=== PATIENT | male | born 1955 | race Caucasian/White ===

== ENCOUNTER 2024-05-25 08:46 | Outpatient (AMB) | payer MEDICARE, SELFPAY ==
[2024-05-25 08:56] VITALS: BMI 37.9
--- NOTE | 2024-05-25 08:56 | A.OFFVIS_ITS ---
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 Accompanied by: Spouse Allergies No Known Allergies Allergy (Verified 05/25/24 09:09) HPI Comments Details: Very pleasant 68-year-old gentleman presents for evaluation of abdominal aortic aneurysm this all began as a screening from insurance for Medicare aneurysm screening. June of 2022 it had measured 4.8 cm. More recently had been shown to increase on ultrasound and a subsequent CT scan was obtained. He had to change vascular services due to insurance issues. He was subsequently sent in for vascular evaluation by us. Upon discussion with him he is asymptomatic. He has prior history of smoking and quit smoking in 2017. He is a nondiabetic. He is being maintained on an aspirin and statin. Upon further discussion with him he reports that he is fairly healthy and can climb 2 flights of stairs with no significant difficulty. [facility] Medical History (Updated 05/25/24 @ 13:10 by Reinaldo Tinajero MD) Carpal tunnel syndrome of right wrist Surgical History (Updated 05/25/24 @ 09:10 by NAKIA Stratton) S/P skin biopsy Social History (Updated 05/25/24 @ 09:10 by NAKIA Stratton) Patient Tobacco Use Status: Former Tobacco user Tobacco use type: Cigarette Review of Systems Const All systems reviewed & are unremarkable except as noted in HPI and below Reports no additional complaints ENT Reports Normal hearing present Card Denies chest pain, Denies chest pain at rest, Denies chest pain with activity and Denies pedal edema Resp Denies cough GI Denies abdominal pain Musc Denies abnormal gait, Denies muscle cramps and Denies radiating pain into limb Skin/Breast Denies skin ulcer and Denies wounds Neuro Reports Normal hearing present and Denies abnormal gait Psych Reports no additional complaints Physical Exam Vital Signs: BMI result Body Mass Index 37.9 Const General: cooperative, healthy appearing and comfortable Orientation/consciousness: oriented to person, oriented to place and oriented to time HEENT Head: Yes normal to inspection Neck Neck: Yes normal visual inspection Carotids: no bruits Chest Chest palpation & inspection: normal inspection of the chest Resp Effort & Inspection: normal respiratory effort and able to speak in complete sentences Auscultation: clear to auscultation bilaterally, no crackles, no rales, no rhonchi and no wheezes Cardio Other: Palpable bilateral DP pulses Rate: regular rate Rhythm: regular rhythm Heart sounds: S1 normal heart sound present and S2 normal heart sound present Bruits: no carotid bruits Peripheral pulses: Peripheral pulses 2+ throughout GI Inspection: Yes normal to inspection Skin Wounds: no wounds Hair: normal Neuro General: oriented to person, oriented to place and oriented to time Cranial nerves: Yes CN's II-XII intact bilaterally and Yes Normal hearing present Cognition (Neuro): normal cognition Motor exam (neuro): 5/5 motor strength present throughout Extrem Other: venous exam: No significant superficial varicosities or spider telangiectasias, minimal edema General: No clubbing, No cyanosis and No edema Psych Appearance: grossly normal Mental Status: mental status grossly normal Speech and movement: Normal speech and movement present Results Reviewed Results Reviewed: CT scan report dated 05/10/2024 demonstrates infrarenal aortic aneurysm measuring 5.7 x 4.7. With a question of a pseudo aneurysm. Written report reviewed only. Assessment & Plan Assessment & Plan (1) AAA (abdominal aortic aneurysm) without rupture: Code(s): I71.40 - Abdominal aortic aneurysm, without rupture, unspecified Category: Medical Qualifiers: Abdominal aorta location: infrarenal aorta Qualified Code(s): I71.43 - Infrarenal abdominal aortic aneurysm, without rupture Plan: In short patient has a 5.7 cm infrarenal aortic aneurysm. We have discussed the pathophysiology of aortic aneurysms and the risk of ruptures. We have discussed rupture risk based on size. Due to the aneurysms overall size repair is indicated. The patient will require endovascular aortic aneurysm repair with possible open repair. Risks benefits complications including but not limited to bleeding infection rupture and were discussed in detail with the patient. He agreed and would like to move forward. He will require cardiac risk stratification prior to surgery. Thank you for allowing us to assist in his care. If there are any questions or concerns please do not hesitate to contact us Please note a longitudinal relationship has been created with the patient and we have been following and surveillance this chronic condition. Coding Level of Care Code New Pt Level 4 (98585) Complex EM visit Add On G2211 Diagnoses Infrarenal abdominal aortic aneurysm (AAA) without rupture I71.43 Abdominal aorta location: infrarenal aorta Abd Aortic Aneurysm History of Present Illness Current symptoms: Denies abdominal pain
== END 2024-05-25 09:42 | disposition home or self-care (01) ==
PROVIDERS: PCP Family Medicine; Visit Provider Surgery Vascular Surgery
DX: I71.43 Infrarenal abdominal aortic aneurysm, without rupture (principal)
CPT/HCPCS: 99204; G2211

== ENCOUNTER → 2024-05-25 08:46 | Outpatient (BNVA) | payer MEDICARE, SELFPAY | PROVIDERS: PCP Family Medicine; Visit Provider Surgery Vascular Surgery | DX: I71.43 Infrarenal abdominal aortic aneurysm, without rupture (principal); Z87.891 Personal history of nicotine dependence | CPT/HCPCS: 99202 ==

== ENCOUNTER 2024-05-26 12:42 | Outpatient (AMB) | payer MEDICARE, SELFPAY ==
--- NOTE | 2024-05-26 12:56 | A.OFFVIS_ITS ---
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 Patient denies any history of cardiovascular issues including coronary disease, myocardial infarction or cardiomyopathy. History of smoking in the past but not recently. Otherwise, he states that he was also diagnosed with branch retinal artery occlusion couple years ago. Within limits of her activity, denies any chest pain or shortness of breath. In the past, he has also had high blood pressures as much as the 170s. Not on any medications at this time. He thinks home blood pressures are much lower. [facility] Medical History (Updated 05/26/24 @ 13:25 by Girish Lyn MD) Essential hypertension Carpal tunnel syndrome of right wrist Surgical History S/P skin biopsy Family History (Updated 05/26/24 @ 13:01 by Yudelka Gerber CMA) Father Stented coronary artery Brother DM2 (diabetes mellitus, type 2) Social History (Updated 05/26/24 @ 13:02 by Yudelka Gerber CMA) Alcohol intake: current Comment: social Patient Tobacco Use Status: Former Tobacco user Tobacco use type: Cigarette Review of Systems Const Denies chills, Denies daytime sleepiness, Denies fatigue, Denies fever(s), Denies poor appetite, Denies snoring, Denies stops breathing during sleep, Denies weakness, Denies weight gain and Denies weight loss Eyes Denies loss of vision ENT Denies dizziness and Denies hearing loss Card Denies chest pain, Denies irregular heart rhythm, Denies claudication, Denies leg edema, Denies lightheadedness, Denies palpitations, Denies dyspnea on exertion and Denies orthopnea Resp Denies cough, Denies excessive phlegm production, Denies dyspnea on exertion, Denies snoring and Denies wheezing GI Denies abdominal pain, Denies hematochezia, Denies change in bowel habits, Denies nausea and Denies vomiting Denies dysuria and Denies urinary frequency Musc Denies arthralgias, Denies muscle weakness, Denies numbness and Denies other Skin/Breast Denies nail changes and Denies rash Neuro Denies Abnormal speech present, Denies dizziness, Denies loss of vision, Denies memory loss, Denies numbness and Denies weakness Psych Denies depression and Denies memory loss Endo Denies fatigue and Denies palpitations Praveen/Lymph Denies easy bruising Aller/Immun Denies wheezing Physical Exam Vital Signs: Last Vital Signs Pulse 66 05/26/24 12:59 BP 142/88 H 05/26/24 12:59 BMI result Body Mass Index 38.2 Const General: comfortable and no acute distress Orientation/consciousness: patient oriented x3 HEENT Other: Unremarkable Head: Yes normal to inspection Neck Neck: Yes normal visual inspection Chest Chest palpation & inspection: normal inspection of the chest Resp Auscultation: clear to auscultation bilaterally Cardio Palpation: normal PMI Heart sounds: S1 normal heart sound present, S2 normal heart sound present, no gallops, no murmurs and no rubs GI Palpation (GI): Soft to palpation Back/Spine/Pelvis Other: unremarkable Skin General skin exam: no rashes or lesions noted Neuro General: patient oriented x3 Speech: No Abnormal speech present Extrem General: Yes normal to inspection Psych Mental Status: mental status grossly normal Office Procedures EKG Details: EKG with underlying sinus rhythm at 66/Min; no significant ST-T changes and otherwise unremarkable. [place] [id number], Complete Assessment & Plan Assessment & Plan (1) Preoperative cardiovascular examination: Code(s): Z01.810 - Encounter for preprocedural cardiovascular examination Category: Medical (2) AAA (abdominal aortic aneurysm) without rupture: Code(s): I71.40 - Abdominal aortic aneurysm, without rupture, unspecified Category: Medical Qualifiers: Abdominal aorta location: infrarenal aorta Qualified Code(s): I71.43 - Infrarenal abdominal aortic aneurysm, without rupture (3) Essential hypertension: Code(s): I10 - Essential (primary) hypertension Category: Medical Plan Considering major vascular surgery, will plan on echocardiogram and stress testing for further evaluation. With regard to medications, he is already on aspirin and statins. Blood pressure is on the higher side today but he states home pressures are lower than this. However, he reports blood pressures as much as 170s in the past. Hence considering history of aortic aneurysm, start medications. Amlodipine 2.5 mg daily. He agrees. Addendum can be made after review of the testing. Orders: Orders CA echo transthoracic complete Today I71.43 - Infrarenal abdominal aortic aneurysm, without rupture, Z01.810 - Encounter for preprocedural cardiovascular examination NM cardiolite stress test Today R07.2 - Precordial pain, Z01.810 - Encounter for preprocedural cardiovascular examination CA lexiscan stress w anika Today Z01.810 - Encounter for preprocedural cardiovascular examination Medications: New amlodipine 2.5 mg PO DAILY 90 tabs 3RF I10 - Essential (primary) hypertension Coding Level of Care Code New Pt Level 4 (17085) Diagnoses Preoperative cardiovascular examination Z01.810 Infrarenal abdominal aortic aneurysm (AAA) without rupture I71.43 Abdominal aorta location: infrarenal aorta Essential hypertension I10 CPT Codes EKG - CPT: 42465-[id number], Complete ([id number])
[2024-05-26 12:59] VITALS: BP 142/88; PULSE 66; BMI 38.2
== END 2024-05-26 13:44 | disposition home or self-care (01) ==
PROVIDERS: PCP Family Medicine; Visit Provider Internal Medicine
DX: I71.43 Infrarenal abdominal aortic aneurysm, without rupture (principal); I10 Essential (primary) hypertension; Z01.810 Encounter for preprocedural cardiovascular examination
CPT/HCPCS: 93010; 99204

== ENCOUNTER → 2024-05-26 12:42 | Outpatient (BNVA) | payer MEDICARE, SELFPAY | PROVIDERS: PCP Family Medicine; Visit Provider Internal Medicine | DX: Z01.810 Encounter for preprocedural cardiovascular examination (principal); I71.43 Infrarenal abdominal aortic aneurysm, without rupture; I10 Essential (primary) hypertension | CPT/HCPCS: 93005; 99202 ==

== ENCOUNTER → 2024-05-28 10:48 | Outpatient (REF) | payer MEDICARE, SELFPAY ==
--- NOTE | 2024-05-28 10:51 | CA_ITS ---
Transthoracic Echocardiogram Patient (Last, First, Middle): Moustapha Ponce, Gender: Male Date of : 1955 Age: 68 Procedure Date: 05/28/2024 Procedure Type: Transthoracic Echocardiogram Location: OP Height: 172. cm Weight: 113.4 kg BSA: 2.24 m2 Heart Rate: bpm BP: 155 / 85 mmHg Pesticide Use Medical Coordinator: GEMA Referring MD: Girish Lyn MD Symptoms: Z01.810 - Encounter for preprocedural cardiovascular examination Study Quality: Fair ECG Rhythm: Bradycardia Conclusions: - The left ventricular systolic function is normal. The calculated ejection fraction is 62% by biplane method. - Possible basal inferior/inferoseptal/inferolateral hypokinesis. - No obvious valvular pathology seen on this study. Findings Left Ventricle Normal left ventricular cavity size. The left ventricular systolic function is normal. The calculated ejection fraction is 62% by biplane method. Diastolic function is normal for age. There is mild septal asymmetric hypertrophy. Possible basal inferior/inferoseptal/inferolateral hypokinesis. LV peak GLS -15.9%. Right Ventricle Mildly increased right ventricular cavity size. There is normal right ventricular systolic function. Atria Both atria are normal in size. Aortic Valve There is a normal trileaflet aortic valve. There is mild calcification of the aortic valve. There is no aortic valve stenosis. There is no aortic valve regurgitation. Mitral Valve The mitral valve appears normal. There is no mitral valve regurgitation. There is no mitral valve stenosis. Pulmonic Valve The pulmonic valve is likely normal. Tricuspid Valve Normal tricuspid valve structure. There is no tricuspid valve regurgitation. Tricuspid regurgitation envelope is inadequate for calculation of right ventricular systolic pressure. Great Vessels The asc aorta and aortic arch are normal in size. Venous The inferior vena cava is normal in size and collapses greater than 50% with inspiration. Pericardium/Pleural There is no evidence of pericardial effusion. Prior Study Comparison No prior study available for comparison. Recommendations, Care & Conclusions No obvious valvular pathology seen on this study. Measurements 2D Linear Measurements IVSd: 1.28 0.6-0.9/0.6-1.0 cm LVIDd: 4.87 3.9-5.3/4.2-5.9 cm LVIDd Index: 2.17 2.4-3.2/2.2-3.1 cm/m2 LVIDs: 2.87 2.0-3.6 cm LVPWd: 0.93 0.7-1.1 cm LA Diam: 4.50 2.7-3.8/3.0-4.0 cm LAIDs Index: 2.01 1.5-2.3 cm/m2 LV Mass: 249.13 67-162/88-224 g LV Mass Index: 111.22 43-95/49-115 g/m2 LVOT Diam: 2.30 3.0+(-)1.3 cm 2D Systolic Function EF 4C: 61.30 >55% EF 2C: 65.20 >55% EF BiP: 62.00 >55% Mitral Valve MV Pk E: 0.80 MV PK A: 0.56 MV Decel Time: 169.00 E/A: 1.40 E'Lateral: 9.36 E'Medial: 7.40 E/E' Med: 10.80 E/E' Lat: 8.50 PHT: 50.00 MVA PHT: 4.40 Decel [place]: 4.71 Aortic Valve AoV Pk [place]: 1.05 AoV Mn [place]: 0.79 AoV VTI: 0.26 AoV Pk Grad: 4.00 Aov Mn Grad: 3.00 YAS Cont.VTI: 2.53 LVOT LVOT Pk [place]: 0.67 LVOT Mn [place]: 0.48 LVOT VTI: 0.16 LVOT Pk Grad: 2.00 LVOT Mn Grad: 1.00 LVOT Diam: 2.30 LVOT Area: 4.15 Diastolic Function MV Pk E: 0.80 MV Pk A: 0.56 E/A: 1.40 E'Medial: 7.40 E/E' Med: 10.80 E' Laterial: 9.36 E/E' Lat: 8.50 Right Ventricle TAPSE (mm): 23.30 Tricuspid Valve RA Press: 3.00 Great Vessels Aorta Sinus of Valsalva: 3.70 2.0-3.5 cm Ao Asc: 3.90 2.1-3.4 cm Ao Arch: 2.90 Pulmonary Valve PV Pk [place]: 1.38 Peak PV Grad: 8.00 Updated in Other Vendor System with Status of Final Girish Lyn MD electronically signed on 05/30/2024 11:10:36 AM with status of Final
== END ==
LOC: HO.CARD 10:48
PROVIDERS: PCP Family Medicine; Visit Provider Internal Medicine
DX: Z01.810 Encounter for preprocedural cardiovascular examination (principal); I71.43 Infrarenal abdominal aortic aneurysm, without rupture
CPT/HCPCS: 93306; 93356; 99202

== ENCOUNTER → 2024-05-28 10:51 | Outpatient (BNV) | payer MEDICARE, SELFPAY | PROVIDERS: PCP Family Medicine; Visit Provider Internal Medicine | DX: I42.2 Other hypertrophic cardiomyopathy (principal); I35.8 Other nonrheumatic aortic valve disorders | CPT/HCPCS: 93306; 93356 ==

== ENCOUNTER → 2024-06-02 07:48 | Outpatient (REF) | payer MEDICARE, SELFPAY ==
--- NOTE | ~2024-06-02 | NM_ITS ---
Lexiscan Myocardial perfusion study Indication: Preoperative cardiovascular evaluation Technique: The patient was brought in for a Lexiscan perfusion study on 06/02/2024 and was injected 0.4 mg of Lexiscan intravenously. Within a minute of this injection 40 mCi of sestamibi was given intravenously. Images were obtained using the SPECT gamma camera interlaced with the gating device. Images were obtained in supine position. Resting perfusion study was performed on 06/03/2024. Patient was administered 40 mCi of sestamibi intravenously at rest. Images were then obtained in supine position. Total DLP 117 mGy-cm. Images were processed with the software and compared side to side in short axis, horizontal long axis and vertical long axis views. Findings: Raw aquisition reviewed. The stress perfusion study showed diminished tracer uptake in the basal part of inferior wall. There is improvement with CT attenuation correction suggestive of diaphragmatic attenuation artifact. The gated study shows normal LV systolic function with calculated LVEF of 58%. LV cavity is normal in size. The gated study shows normal wall thickening and contraction of segments. Resting study shows decreased tracer uptake in the basal part of inferior wall. There is improvement with CT attenuation correction suggestive of diaphragmatic attenuation artifact. Gating at rest reveals normal wall motion with ejection fraction at 59%. The findings are consistent with fixed basal inferior defect, suspected to be from diaphragmatic attenuation artifact. No clear reversible defects. [place] cardiolite stress test Impression: 1. Myocardial perfusion imaging study shows probably normal myocardial perfusion.. 2. Gated LVEF is 58% during stress and 59% during rest. 3. Transient ischemic dilatation not present. EKG component of the test reported separately. Electronically signed by: Girish Lyn MD 06/03/2024 04:26 PM EDT
--- NOTE | 2024-06-02 07:56 | CA_ITS ---
Acquisition Time: 2024-06-02 07:57:46 Total Exercise Time: 00:02:00 Test Indications: Pre-Op Evaluation Medications: ASA ATORVASTATIN TAMSULOSIN NAPROXEN Protocol: LEXISCAN Max HR: 105 BPM 69% of Pred: 151 BPM Max BP: 144/080 mmHG Max Work Load: 1.0 METS Pharmacological stress test with Lexiscan injection while sitting and marching in place, without anginal symptoms, without arrhythmias, with normotensive response to injection, with nondiagnoisitic EKGs. Nuclear images pending. Test reviewed with Dr. Galaviz. Referred By: Girish Lyn Overread By: Maryuri Brewster
== END ==
LOC: HO.CARD 07:48
PROVIDERS: Visit Provider Internal Medicine
DX: Z01.810 Encounter for preprocedural cardiovascular examination (principal); R07.2 Precordial pain
CPT/HCPCS: 78452; 93017; A9500; J0280; J2785

== ENCOUNTER → 2024-06-02 07:56 | Outpatient (BNV) | payer MEDICARE, SELFPAY | PROVIDERS: Visit Provider Nurse Practitioner | DX: Z01.810 Encounter for preprocedural cardiovascular examination (principal) | CPT/HCPCS: 78452; 93016; 93018 ==

== ENCOUNTER 2024-06-21 06:08 | Inpatient (IN) | payer MEDICARE, SELFPAY ==
[2024-06-15 12:27] VITALS: BP 169/91; PULSE 68; RESP 20; O2SAT 98; BMI 38.0
[2024-06-15 13:28] LABS: Hematocrit 48.3 % (42.0-52.0); INTERNATIONAL NORM RATIO 0.9 (0.9-1.1); Mean Corpuscular HGB Conc 33.1 g/dl (31.0-36.0); Mean Corpuscular Hemoglobin 30.6 pg (27.0-33.0); Mean Corpuscular Volume 92.4 fL (80.0-98.0); Mean Platelet Volume 10.6 fL (9.4-12.4); Platelet Count 119 X10*3/uL (160-400); Prothrombin Time 10.8 SEC (10.9-12.4); Red Blood Count 5.23 X10*6/uL (4.60-5.80); Red Cell Distribution Width 12.6 % (11.0-16.0); White Blood Count 5.6 X10*3/uL (4.8-10.8)
[2024-06-15 13:31] LABS: Partial Thromboplastin Time 32.5 SEC (26.0-36.8)
[2024-06-15 13:33] LABS: Anion Gap 8 (12-20); Blood Urea Nitrogen 18 mg/dL (9-16); Calcium 9.2 mg/dL (8.4-10.2); Carbon Dioxide 30 mmol/L (22-29); Chloride 109 mmol/L (96-108); Creatinine Clr Calc Pharmacy 93.6; Estimated Glomerular Filt Rate > 60; Glucose Random 96 mg/dL (60-115); Potassium 4.4 mmol/L (3.3-5.1); Sodium 143 mmol/L (135-145)
[2024-06-21] VITALS (21 sets, daily range): BP systolic 115–158; BP diastolic 49–79; PULSE 60–100; RESP 11–29; TEMP 36.4–37; O2SAT 94–100; BMI 37.9
--- NOTE | ~2024-06-21 | FL_ITS ---
EXAMINATION: INTRAOPERATIVE FLUOROSCOPY ABDOMINAL AORTA CLINICAL INFORMATION: Aortic stent graft. COMPARISON: CT abdomen/pelvis 05/10/2024 TECHNIQUE: Intraoperative fluoroscopic imaging was provided to Dr. Tinajero during aortic stent graft placement. Total radiographic images: One spot film and one angiographic run. Exposure time: 14 minutes, 54.2 seconds Dose area product: 122.90 Gy-cm2 FINDINGS/ FL/FL guidance in OR IMPRESSION: intraoperative fluoroscopic images demonstrate stages of aortic stent graft placement. Please see Dr. Reinaldo Tinajero's operative note for full details. Electronically signed by: Ryan Saravia MD 06/21/2024 06:51 PM EDT
--- OUTSIDE RECORDS SUMMARY | 2024-06-21 06:12 | XMS_ITS | Continuity of Care Document ---
Author Organization [facility] Address [address] [address]- Care Team Providers Care Surgery Tech Name Role Phone Doris Simms MD Primary Care Phys ician [place] [facility] [place] [id number] Date(s): 02/10/23 - 03/12/23 [facility] [address] [address]- Attending Physician: Alison Tran Admitting Physician: AdmAlison cardona Referring Physician: AdmtrAlison Allergies, Adverse Reactions, Alerts No Known Medication Allergies Medications aspirin 81 mg oral delayed release tablet 81 mg, 1, tablet, By Mouth, Daily, # 90 tablet, Refills 3, Tot. Refills 3, Maintenance, 08/19/22 14:12:00 EST, Route to Pharmacy Electronically, [facility]/pharmacy #[id number], Partial fill upon patient request if the prescription is for a schedule II opioid drug. Start Date: 08/19/22 Stop Date: 08/14/23 Status: Ordered atorvastatin 20 mg oral tablet 1 tablet = 20 mg, By Mouth, Daily, # 90 tablet, 3 Refills, Maintenance, 08/19/22 14:12:00 EST, Tablet, [facility]/pharmacy #5, Partial fill upon patient request if the prescription is for a schedule II opioid drug. Start Date: 08/19/22 Stop Date: 08/14/23 Status: Ordered Naproxen By Mouth, 0 Refills, Maintenance, 08/19/22 13:50:00 EST, Partial fill upon patient request if the prescription is for a schedule II opioid drug. Start Date: 08/19/22 Status: Ordered Patient Care team information Care Team Personnel Name: Doris Simms MD Position: S Outreach Member Role: PCP Address: Address: [address] [place] [phone]
--- OUTSIDE RECORDS SUMMARY | 2024-06-21 06:12 | XMS_ITS | Continuity of Care Document ---
Author Organization [facility] Address [address] [address]- Care Team Providers Care Glove Tagger Name Role Phone Doris Simms MD Primary Care Phys [facility] Encounter [facility] [place] [id number] Date(s): 12/26/22 - 03/12/[address] [address]- Attending Physician: Taylor Carlin MD Admitting Physician: Taylor Carlin MD Referring Physician: Doris Simms MD Allergies, Adverse Reactions, Alerts No Known Medication Allergies Medications aspirin 81 mg oral delayed release tablet 81 mg, 1, tablet, By Mouth, Daily, # 90 tablet, Refills 3, Tot. Refills 3, Maintenance, 08/19/22 14:12:00 EST, Route to Pharmacy Electronically, [facility]/pharmacy #[id number], Partial fill upon patient request if the prescription is for a schedule II opioid drug. Start Date: 08/19/22 Stop Date: 08/14/23 Status: Ordered atorvastatin 20 mg oral tablet 1 tablet = 20 mg, By Mouth, Daily, # 90 tablet, 3 Refills, Maintenance, 08/19/22 14:12:00 EST, Tablet, [facility]/pharmacy #[id number], Partial fill upon patient request if [...] S Outreach Member Role: PCP Address: Address: [address] [place] [address]- [place]
--- OUTSIDE RECORDS SUMMARY | 2024-06-21 06:12 | XMS_ITS | Continuity of Care Document ---
Author Organization [facility] Address [address] [address]- Care Team Providers Care Foundation Engineer Name Role Phone Linden Orantes MD, Doris Primary Care Phys [facility] Encounter [facility] Date(s): 08/19/22 - 08/26/22 [facility] [address] [address]- Attending Physician: Taylor Carlin MD Admitting Physician: Taylor Carlin MD Referring Physician: Linden Orantes MD , Doris Allergies, Adverse Reactions, Alerts No Known Medication Allergies Medications aspirin 81 mg oral delayed release tablet 81 mg, 1, tablet, By Mouth, Daily, # 90 tablet, Refills 3, Tot. Refills 3, Maintenance, 08/19/22 14:12:00 EST, Route to Pharmacy Electronically, [facility]/pharmacy #[id number], Partial fill upon patient request if [...] opioid drug. Start Date: 08/19/22 Status: Ordered Vital Signs Most recent to oldest [Reference Range]: 1 Weight 115.3 kg (08/19/22 1:50 PM) Oxygen Saturation [94-100 %] 96 % (08/19/22 1:50 PM) Pulse Rate [55-90 bpm] 62 bpm (08/19/22 1:50 PM) Blood Pressure [90-138/55-84 mm Hg] 164/ 95mm Hg *H* (08/19/22 1:50 PM) Blood pressure sites Arm, left (08/19/22 1:50 PM) Weight Obtained Via Standing scale (08/19/22 1:50 PM) Note * Cathy Mendiola: PERFORM, SIGN, VERIFY Event Display: Patient Education/Instruction Authored Date: [id number] [facility] *[facility] H[facility] Vas Off Clinical Summary Name TERE JARAMILLO Age 66 Years 1955 PCP Linden Orantes MD , Doris PCP Visit Date 08/19/2022 13:21:00 Additional Instructions: Scheduled Appointments?? Future Appointments ?No Future Appointments Scheduled Follow-Up Instructions ?? With: Address: When: Taylor Carlin [address] [place] [address] [place] [address] Business (1) In 6 months 02/16/2023 Diagnosis Medications: Please continue your medications until treatment is completed or stopped by your provider. Discuss any questions related to medications with your provider. New Medications [facility]/pharmacy #[id number], [address] [place], [place] [id number], [phone] Aspirin (aspirin 81 mg oral delayed release tablet) 1 tab(s) Oral Daily for 90 Days. Refills: 3. Next Dose: Atorvastatin (atorvastatin 20 mg oral tablet) 1 tab(s) Oral Daily for 90 Days. Refills: 3. Next Dose: Medications to Continue with No Changes These medications were not printed or sent to your pharmacy Naproxen Oral. Next Dose: Allergy Info:?? No Known Medication Allergies Medications Given This Visit Future Orders ?No future orders Vital Signs Height Weight 115.3 kg BMI Blood Pressure 164 mm Hg/95 mm Hg Temperature Pulse Rate 62 bpm Respiratory Rate 02 Sat Mode of Delivery 96 %/ You can now view a summary of your hospital visit from the comfort of your home through a free online portal called [email or web address]. [email or web address] is a website that allows you to securely view your medical information including discharge summary, medications and follow-up visits. ??You can alsosend a secure electronic message to your doctor???s office to request appointments, renew medications or just ask a question. You can enroll at [email or web address] or register during your next office visit. Disclaimer:?? The information provided is of a general nature and is intended to be used in conjunction with the recommendations and advice of your health care practitioner. ??Every effort has been made to ensure that the information provided is accurate and complete at the time it is provided to you however, as your needs change, or, as new ??information becomes available, different or additional instructions may be required. If you have questions, please consult with your primary care provider or pharmacist, as appropriate. ??This information is not intended to serve as substitution for assessment and evaluation by a qualified health care provider. If you do not have a primary care provider, you may find a [facility] provider by calling [facility] [employer] Link at [phone]. For information about the plan of care including goals and instructions for your diagnosis, please see the patient education orders section of this document. Patient Education Materials?? The content of this educational material or handout may have been modified, supplemented, or adapted from its original content and format to support your individualized medical care. Patient Care team information Care Team Personnel Name: Linden Orantes MD , Doris Position: S Outreach Member Role: PCP Address: Address: [address] [place] [address]
--- OUTSIDE RECORDS SUMMARY | 2024-06-21 06:12 | XMS_ITS | Continuity of Care Document ---
Author Organization [facility] Address [address] [address]- Care Team Providers Care International Marketing Coordinator Name Role Phone Doris Simms MD Primary Care Phys ician Encounter [facility] Date(s): 04/29/24 - 05/29/24 [facility] [address] [address] Allergies, Adverse Reactions, Alerts No Known Medication Allergies Medications Aspirin Low Dose 81 mg oral delayed release tablet 1 tablet, By Mouth, Daily, # 90 tablet, 3 Refills, Maintenance, 08/26/23 8:27:00 EST, [id number] Start Date: 08/26/23 Status: Ordered atorvastatin 20 mg oral tablet 1 tablet, By Mouth, Daily, # 90 tablet, 3 Refills, Maintenance, 08/26/23 8:27:00 EST, [facility] Start Date: 08/26/23 Status: Ordered Naproxen By Mouth, 0 Refills, Maintenance, 08/19/22 13:50:00 EST, Partial fill upon patient request if the prescription is for a schedule II opioid drug. Start Date: 08/19/22 Status: Ordered Problem List Condition Confirmation Course Effective Dates Status Health St atus Informant Obese class II Confirmed Active Patient Care team information Care Team Personnel Name: Doris Simms MD Position: [facility] Outreach Member Role: PCP Address: Address: [address] [place] [id number]
--- OUTSIDE RECORDS SUMMARY | 2024-06-21 06:12 | XMS_ITS | Continuity of Care Document ---
Author Organization [facility] Address [address] [place] [address]- Care Team Providers Care Edge Stripper Name Role Phone Doris Simms MD Primary Care Phys ician Encounter [facility] Date(s): 05/17/24 - 06/16/24 [facility] [address] [place], [place] [address] Allergies, Adverse Reactions, Alerts No Known Medication Allergies Medications Aspirin Low Dose 81 mg oral delayed release tablet 1 tablet, By Mouth, Daily, # 90 tablet, 3 Refills, Maintenance, 08/26/23 8:27:00 EST, [id number] Start Date: 08/26/23 Status: Ordered atorvastatin 20 mg oral tablet 1 tablet, By Mouth, Daily, # 90 tablet, 3 Refills, Maintenance, 08/26/23 8:27:00 EST, [id number] Start Date: 08/26/23 Status: Ordered Naproxen By Mouth, 0 Refills, Maintenance, 08/19/22 13:50:00 EST, Partial fill upon patient request if the prescription is for a schedule II opioid drug. Start Date: 08/19/22 Status: Ordered Problem List Condition Confirmation Course Effective Dates Status Health St atus Informant Obese class II Confirmed Active Patient Care team information Care Team Personnel Name: Doris Simms MD Position: [facility] Outreach Member Role: PCP Address: Address: [address] [place] [address]
--- OUTSIDE RECORDS SUMMARY | 2024-06-21 06:12 | XMS_ITS | Continuity of Care Document ---
Author Organization [facility] Address [address] [address]- Care Team Providers Care Engagement Liaison Name Role Phone Doris Simms MD Primary Care Phys ician Encounter [id number] Date(s): 02/04/23 - 03/06/23 [facility] [address] [address]- Attending Physician: Alison Tran Admitting Physician: AdmAlison cardona Referring Physician: AdmtrAlison Allergies, Adverse Reactions, Alerts No Known Medication Allergies Medications aspirin 81 mg oral delayed release tablet 81 mg, 1, tablet, By Mouth, Daily, # 90 tablet, Refills 3, Tot. Refills 3, Maintenance, 08/19/22 14:12:00 EST, Route to Pharmacy Electronically, [facility]/pharmacy #[id number], Partial fill upon patient request if the prescription is for a schedule II opioid drug. Start Date: 08/19/22 Stop Date: 08/14/23 Status: Ordered atorvastatin 20 mg oral tablet 1 tablet = 20 mg, By Mouth, Daily, # 90 tablet, 3 Refills, Maintenance, 08/19/22 14:12:00 EST, Tablet, [facility]/pharmacy #5, Partial fill upon patient request if [...] S Outreach Member Role: PCP Address: Address: [address] [place] [address]
--- OUTSIDE RECORDS SUMMARY | 2024-06-21 06:12 | XMS_ITS | Continuity of Care Document ---
Author Organization [facility] Address [address] [address]- Care Team Providers Care Cork Painter And Grader Name Role Phone Doris Simms MD Primary Care Phys [facility] Encounter [facility] Date(s): 08/19/22 - 09/18/22 [facility] [address], [place] [address] Attending Physician: Alison Tran Admitting Physician: AdmtrAlison Referring Physician: Admtr ArQuinton Allergies, Adverse Reactions, Alerts No Known Medication Allergies Medications aspirin 81 mg oral delayed release tablet 81 mg, 1, tablet, By Mouth, Daily, # 90 tablet, Refills 3, Tot. Refills 3, Maintenance, 08/19/22 14:12:00 EST, Route to Pharmacy Electronically, [facility]/pharmacy #2024, Partial fill upon patient request if the prescription is for a schedule II opioid drug. Start Date: 08/19/22 Stop Date: 08/14/23 Status: Ordered atorvastatin 20 mg oral tablet 1 tablet = 20 mg, By Mouth, Daily, # 90 tablet, 3 Refills, Maintenance, 08/19/22 14:12:00 EST, Tablet, [facility]/pharmacy #[id number], Partial fill upon patient request if the [...] S Outreach Member Role: PCP Address: Address: [address] [place], [place] [id number]
--- OUTSIDE RECORDS SUMMARY | 2024-06-21 06:12 | XMS_ITS | Continuity of Care Document ---
Author Organization [facility] Address [address] [address]- Care Team Providers Care Tapping Machine Operator Automatic Name Role Phone Linden Orantes MD, Doris Primary Care Phys [facility] En[place] [facility] Date(s): 05/14/24 - 05/21/24 [facility] [address] [address]- Encounter Diagnosis Abdominal aortic aneurysm(Discharge Diagnosis) - 05/14/24 Attending Physician: Tesfaye GARZA, Taylor Archibald Admitting Physician: Tesfaye GARZA, Taylor Archibald Referring Physician: Linden Orantes MD , Doris Allergies, Adverse Reactions, Alerts No Known Medication Allergies Medications Aspirin Low Dose 81 mg oral delayed release tablet 1 tablet, By Mouth, Daily, # 90 tablet, 3 Refills, Maintenance, 08/26/23 8:27:00 EST, [id number] Start Date: 08/26/23 Status: Ordered atorvastatin 20 mg oral tablet 1 tablet, By Mouth, Daily, # 90 tablet, 3 Refills, Maintenance, 08/26/23 8:27:00 EST, [id number] Start Date: 08/26/23 Status: Ordered Naproxen By Mouth, 0 Refills, Maintenance, 08/19/22 13:50:00 EST, Partial fill upon patient request if the prescription is for a schedule II opioid drug. Start Date: 08/19/22 Status: Ordered Problem List Condition Confirmation Course Effective Dates Status Health St atus Informant Obese class II Confirmed Active Diagnosis Diagnosis Type Effective Dates Health Status Cl inical Service Informant Abdominal aortic aneurysm Discharge Diagnosis 05/14/24 Vital Signs Most recent to oldest [Reference Range]: 1 Height 172 cm (05/14/24 4:01 PM) Weight 113.7 kg (05/14/24 4:01 PM) Oxygen Saturation [94-100 %] 96 % (05/14/24 4:01 PM) Pulse Rate [55-90 bpm] 66 bpm (05/14/24 4:01 PM) Body Mass Index [18.5-24.99 kg/m2] 38.43 kg/m2 *>HHI* (05/14/24 4:01 PM) Blood Pressure [90-138/55-84 mm Hg] 140/ 73mm Hg *H* (05/14/24 4:01 PM) Mode of Delivery (Oxygen) Room air (05/14/24 4:01 PM) Blood pressure sites Arm, left (05/14/24 4:01 PM) Weight Obtained Via Standing scale (05/14/24 4:01 PM) Patient Care team information Care Team Personnel Name: Linden Orantes MD , Doris Position: S Outreach Member Role: PCP Address: Address: [address] [place] [id number]
--- OUTSIDE RECORDS SUMMARY | 2024-06-21 06:12 | XMS_ITS | Continuity of Care Document ---
Author Organization [facility] Address [address] [facility] [place] [address]- Care Team Providers Care Health Workers Name Role Phone Doris Simms MD Primary Care Phys ician Encounter 07/17/22 - 07/24/22 [facility] [address], [address] [place], [place] [address] Attending Physician: Doris Simms MD Admitting Physician: Doris Simms MD Referring Physician: Doris Simms MD Patient Care team information Personnel Name: Doris Simms MD Address: Address: [address] [place] [id number]
--- OUTSIDE RECORDS SUMMARY | 2024-06-21 06:12 | XMS_ITS | Continuity of Care Document ---
Author Organization [facility] Address [address] [address]- Care Team Providers Care Director Online Marketing Name Role Phone Doris Simms MD Primary Care Phys [facility] [place] [facility] [place] [id number] Date(s): 12/26/22 - 03/06/[address] [address]- Attending Physician: Taylor Carlin MD Admitting Physician: Taylor Carlin MD Referring Physician: Taylor Carlin MD Allergies, Adverse Reactions, Alerts No Known Medication Allergies Medications aspirin 81 mg oral delayed release tablet 81 mg, 1, tablet, By Mouth, Daily, # 90 tablet, Refills 3, Tot. Refills 3, Maintenance, 08/19/22 14:12:00 EST, Route to Pharmacy Electronically, [facility]/pharmacy #[id number], Partial fill upon patient request [...] Outreach Member Role: PCP Address: Address: [address] [place] [address] [place]
--- OUTSIDE RECORDS SUMMARY | 2024-06-21 06:12 | XMS_ITS | Continuity of Care Document ---
Author Organization [facility] Address [address] [place] [address]- Care Team Providers Care Fashion Journalist Name Role Phone Doris Simms MD Primary Care Phys ician Encounter [facility] Date(s): 05/17/24 - 06/16/24 [facility] [address] [place], [place] [address] Attending Physician: Alison Tran Admitting Physician: AdmtrAlison Referring Physician: AdmtrAlison Allergies, Adverse Reactions, Alerts No Known Medication Allergies Medications Aspirin Low Dose 81 mg oral delayed release tablet 1 tablet, By Mouth, Daily, # 90 tablet, 3 Refills, Maintenance, 08/26/23 8:27:00 EST, [facility] [id number] Start Date: 08/26/23 Status: Ordered atorvastatin 20 mg oral tablet 1 tablet, By Mouth, Daily, # 90 tablet, 3 Refills, Maintenance, 08/26/23 8:27:00 EST, [id number] Start Date: 08/26/23 Status: Ordered Naproxen By [...] S Outreach Member Role: PCP Address: Address: [address] [place] [address]
[2024-06-21] MEDS: Lactated Ringers 1,000 ML 100 ML IVCONT ×3 (06:42→23:10)
[2024-06-21 06:51] LABS: Hematocrit 44.5 % (42.0-52.0); Hemoglobin 15.4 g/dl (14.0-18.0); Mean Corpuscular HGB Conc 34.6 g/dl (31.0-36.0); Mean Corpuscular Hemoglobin 31.3 pg (27.0-33.0); Mean Corpuscular Volume 90.4 fL (80.0-98.0); Mean Platelet Volume 10.8 fL (9.4-12.4); Platelet Count 112 X10*3/uL (160-400); Red Blood Count 4.92 X10*6/uL (4.60-5.80); Red Cell Distribution Width 12.3 % (11.0-16.0); White Blood Count 5.6 X10*3/uL (4.8-10.8)
[2024-06-21 06:54] LABS: INTERNATIONAL NORM RATIO 0.9 (0.9-1.1); Prothrombin Time 10.5 SEC (10.9-12.4)
[2024-06-21 07:05] LABS: Anion Gap 12 (12-20); Blood Urea Nitrogen 20 mg/dL (9-16); Calcium 9.4 mg/dL (8.4-10.2); Carbon Dioxide 23 mmol/L (22-29); Chloride 110 mmol/L (96-108); Creatinine Clr Calc Pharmacy 90.6; Estimated Glomerular Filt Rate > 60; Glucose Random 120 mg/dL (60-115); Potassium 3.9 mmol/L (3.3-5.1); Sodium 141 mmol/L (135-145)
--- NOTE | 2024-06-21 07:24 | PHA.MEDREC ---
Pharmacy Consult ? Medication Reconciliation Pharmacy has reviewed the medication reconciliation completed by nursing.
--- NOTE | 2024-06-21 07:25 | P.CONAN_ITS ---
Documented by User: Neyda Casarez NP 06/17/24 14:39 HPI - Anesthesia Eval Consult details Narrative: 68yo M for Aortic Endovascular Repair (5.7 cm infrarenal aortic aneurysm) Cardiac [place] [facility]: Cardiac studies reviewed. In the echocardiogram, preserved LVEF; possible basal inferior/inferoseptal/inferolateral hypokinesis. In the perfusion imaging again reduced uptake in the basal inferior wall, but it resolves with CT attenuation correction and hence more suggestive of artifactual finding. Overall, not definitive if he had a prior inferior myocardial event or if the above findings all artifactual. Clinically, he has got absolutely no symptoms. Hence may proceed as planned. Intermediate cardiac risk. No recent illness No CP/SOB with mod activity PMFSH Active Problems Active Problems: All Active Problems Preoperative cardiovascular examination (Acute) AAA (abdominal aortic aneurysm) without rupture (Acute) Essential hypertension (Acute) Past Medical History Medical History (Updated 06/15/24 @ 12:25 by Marge Hernandez RN) BPH (benign prostatic hyperplasia) Basal cell carcinoma Spinal arthritis Back pain Habitual snoring Elevated cholesterol Myocardial infarction Corneal abrasion Ex-smoker Nicotine dependence Impaired fasting glucose Retinal artery occlusion Cataract Macular hole Prediabetes Essential hypertension Carpal tunnel syndrome of right wrist Family History Family History (Updated 05/26/24 @ 13:01 by Yudelka Gerber CMA) Father Stented coronary artery Brother DM2 (diabetes mellitus, type 2) Family history of problems with anesthesia: No Surgical History Surgical History (Updated 06/21/24 @ 06:14 by Marian Dixon RN) History of tonsillectomy History of carpal tunnel release History of surgical removal of pilonidal cyst H/O colonoscopy Hx of cataract extraction Hx of eye surgery S/P skin biopsy History of Problems with Anesthesia: No Social History Social History (Updated 05/26/24 @ 13:02 by Yudelka Gerber CMA) Are you a primary childcare center administrator to a significant other at home: No Do you presently have visiting nurse or other home services: No Alcohol intake: current Alcohol intake frequency: a few times a month Comment: social Patient Tobacco Use Status: Former Tobacco user Tobacco use type: Cigarette Use of substances other than those prescribed or required for medical reasons: No Have you been hit, kicked, punched, or otherwise hurt by someone within the past year? If so, by whom?: No Are you DNR?: No Advance Directives: No Advance Directives Information Provided: No Advance Directives on File: No Recently lost weight without trying: No Eating poorly because of decreased appetite: No Nutrition Risks: No Nutritional Risk Poor oral hygiene: Yes (upper full denture, missing bottom molars) Meds Allergies Allergy/AdvReac Type Severity Reaction Status Date / Time No Known Allergies Allergy Verified 05/25/24 09:09 Home Medications ?Medication ?Instructions ?Recorded ?Confirmed ?Last Taken ?Type aspirin 81 mg tablet,delayed 81 mg PO DAILY 05/25/24 06/21/24 06/15/24 History release atorvastatin 20 mg tablet 20 mg PO DAILY 05/25/24 06/15/24 06/15/24 History tamsulosin 0.4 mg capsule 0.4 mg PO DAILY 05/25/24 06/21/24 06/20/24 History glucosamine 500 1 cap PO DAILY 05/26/24 06/21/24 06/20/24 History dg-gvxvlyogc-vfbdmxcf comp 400 mg-D3 667 unit-C-Mn cap naproxen 250 mg tablet 250 mg PO BID PRN Pain 05/26/24 06/15/24 06/15/24 History Exam Height,Weight and Vital Signs: Height 5 ft 8 in Weight 113.398 kg Last Vital Signs Pulse 68 06/15/24 12:27 Resp 20 06/15/24 12:27 BP 169/91 H 06/15/24 12:27 Pulse Ox 98 06/15/24 12:27 O2 Del Method Room Air 06/15/24 12:27 Pertinent Lab Results Pertinent Lab Results: Lab Results 06/15/24 06/15/24 Range/Units 13:05 13:15 WBC 5.6 (4.8-10.8) X10*3/uL RBC 5.23 (4.60-5.80) X10*6/uL Hgb 16.0 (14.0-18.0) g/dl Hct 48.3 (42.0-52.0) % MCV 92.4 (80.0-98.0) fL MCH 30.6 (27.0-33.0) pg MCHC 33.1 (31.0-36.0) g/dl RDW 12.6 (11.0-16.0) % Plt Count 119 L (160-400) X10*3/uL MPV 10.6 (9.4-12.4) fL Absolute Nucleated RBC 0.000 (0.0-0.012) X10*3/uL Nucleated RBC % (auto) 0.0 (0.0-0.2) /100WBC PT 10.8 L (10.9-12.4) SEC INR 0.9 (0.9-1.1) APTT 32.5 (26.0-36.8) SEC Sodium 143 (135-145) mmol/L Potassium 4.4 (3.3-5.1) mmol/L Chloride 109 H (96-108) mmol/L Carbon Dioxide 30 H (22-29) mmol/L Anion Gap 8 L (12-20) BUN 18 H (9-16) mg/dL Creatinine 0.91 (0.5-1.4) mg/dL Estim Creat Clear Calc 93.6 Estimated GFR > 60 Random Glucose 96 (60-115) mg/dL Calcium 9.2 (8.4-10.2) mg/dL Blood Type A Positive Antibody Screen NEGATIVE Narrative Narrative: EKG 05/2024 sinus rhythm at 66/Min; no significant ST-T changes and otherwise unremarkable. Normal ID and corrected QT. ECHO 05/2024 Conclusions: - The left ventricular systolic function is normal. The calculated ejection fraction is 62% by biplane method. - Possible basal inferior/inferoseptal/inferolateral hypokinesis. - No obvious valvular pathology seen on this study. NM cardiolite stress test 05/2024 Impression: 1. Myocardial perfusion imaging study shows probably normal myocardial perfusion.. 2. Gated LVEF is 58% during stress and 59% during rest. 3. Transient ischemic dilatation not present. EKG component of the test reported separately. Airway Mallampati Class: III TM Dist: >3cm Neck ROM: Full Denture: Upper Loose/Missing/Broken Teeth: Yes Heart: RRR Lungs: CTAB Assessment and Plan Assessment Anesthesia Assessment: Anesthesia Plan Discussed and PAT Visit Final Anesthetic Review Family History of Problems with Anesthesia: No History of Problems with Anesthesia: No Documented by User: Sirena Terrell DO 06/21/24 07:27 [facility] [place] Past Medical History Medical History (Updated 06/15/24 @ 12:25 by Marge Hernandez RN) BPH (benign prostatic hyperplasia) Basal cell carcinoma Spinal arthritis Back pain Habitual snoring Elevated cholesterol Myocardial infarction Corneal abrasion Ex-smoker Nicotine dependence Impaired fasting glucose Retinal artery occlusion Cataract Macular hole Prediabetes Essential hypertension Carpal tunnel syndrome of right wrist Family History Family History (Updated 05/26/24 @ 13:01 by Yudelka Gerber CMA) Father Stented coronary artery Brother DM2 (diabetes mellitus, type 2) Family history of problems with anesthesia: No Surgical History Surgical History (Updated 06/21/24 @ 06:14 by Marian Dixon RN) History of tonsillectomy History of carpal tunnel release History of surgical removal of pilonidal cyst H/O colonoscopy Hx of cataract extraction Hx of eye surgery S/P skin biopsy History of Problems with Anesthesia: No Social History Social History (Updated 05/26/24 @ 13:02 by Yudelka Gerber CMA) Are you a primary childcare center administrator to a significant other at home: No Do you presently have visiting nurse or other home services: No Alcohol intake: current Alcohol intake frequency: a few times a month Comment: social Patient Tobacco Use Status: Former Tobacco user Tobacco use type: Cigarette Use of substances other than those prescribed or required for medical reasons: No Have you been hit, kicked, punched, or otherwise hurt by someone within the past year? If so, by whom?: No Are you DNR?: No Advance Directives: No Advance Directives Information Provided: No Advance Directives on File: No Recently lost weight without trying: No Eating poorly because of decreased appetite: No Nutrition Risks: No Nutritional Risk Poor oral hygiene: Yes (upper full denture, missing bottom molars) Meds Allergies Allergy/AdvReac Type Severity Reaction Status Date / Time No Known Allergies Allergy Verified 05/25/24 09:09 Home Medications ?Medication ?Instructions ?Recorded ?Confirmed ?Last Taken ?Type aspirin 81 mg tablet,delayed 81 mg PO DAILY 05/25/24 06/21/24 06/15/24 History release atorvastatin 20 mg tablet 20 mg PO DAILY 05/25/24 06/15/24 06/15/24 History tamsulosin 0.4 mg capsule 0.4 mg PO DAILY 05/25/24 06/21/24 06/20/24 History glucosamine 500 1 cap PO DAILY 05/26/24 06/21/24 06/20/24 History ps-hhgivqxwe-patigjsy comp 400 mg-D3 667 unit-C-Mn cap naproxen 250 mg tablet 250 mg PO BID PRN Pain 05/26/24 06/15/24 06/15/24 History Exam Exam Date and Time: 06/21/24 0725 Height,Weight and Vital Signs: Height 5 ft 8 in Weight 113.398 kg Last Vital Signs Pulse 68 06/15/24 12:27 Resp 20 06/15/24 12:27 BP 169/91 H 06/15/24 12:27 Pulse Ox 98 06/15/24 12:27 O2 Del Method Room Air 06/15/24 12:27 Vital Signs Pulse Rate 68 06/15/24 12:27 Respiratory Rate 20 06/15/24 12:27 Blood Pressure 169/91 H 06/15/24 12:27 Pulse Oximetry 98 06/15/24 12:27 Oxygen Delivery Method Room Air 06/15/24 12:27 Temperature 98.6 F 06/21/24 06:26 Pulse Rate 60 06/21/24 06:26 Respiratory Rate 16 06/21/24 06:26 Blood Pressure 139/74 06/21/24 06:26 Pulse Oximetry 95 06/21/24 06:26 Oxygen Delivery Method Room Air 06/21/24 06:26 Airway Mallampati Class: III TM Dist: >3cm Neck ROM: Full Denture: Upper Heart: S1S2 Assessment and Plan Assessment Anesthesia Assessment: Anesthesia Plan Discussed and Chart Reviewed Final Anesthetic Review Family History of Problems with Anesthesia: No History of Problems with Anesthesia: No NPO: Yes ASA Class: III Final Preanesthetic Review: No Changes in Pt Med Stat, Meds/Allgs Chart Reviewed, Consent Obtained/Reviewed and Anes Risks/Benef Reviewed Patient Risk: Intermediate Procedure Risk: Intermediate Anesthetic Plan Anesthetic Plan: GA and Agree w/ Assess. and Plan Disposition: Standard PACU
--- NOTE | 2024-06-21 07:39 | MHC.SHP ---
Pre-Procedural Eval Section A - 24 Hr Update-Section A only Date of Service: 06/21/24 The patient is an INPATIENT: No Changes since office visit: Yes Patient answered all questions The patient has been examined within 24 hours of the surgical procedure. The History & Physical has been completed within 30 days and I have reviewed it.: Yes Section B - Complete if H&P > 30 days Chief Complaint: post op Allergies: Allergies Allergy/AdvReac Type Severity Reaction Status Date / Time No Known Allergies Allergy Verified 05/25/24 09:09 Plan I have reviewed the history and physical and performed a pertinent physical examination on my patient. No changes have occurred unless specified. Time Spent With Patient Time: Total time managing care of this patient today ____ minutes.
--- NOTE | 2024-06-21 10:25 | P.OP_ITS ---
Operative Note Operative Note Date of Service: 06/21/24 Narrative: Operative note by [facility] Preoperative diagnosis: Abdominal aortic aneurysm Postoperative diagnosis: Same Procedure: 1. Right femoral artery cutdown 2. Percutaneous left common femoral artery access 3. Endovascular aortic aneurysm repair (Endologix AFX 2 device) 4. Radiologic supervision and interpretation Surgeon:Reinaldo Tniajero M.D. Manager Of Customer Billing: Dr. Orellana Anesthesia: General endotracheal Specimens: None Drains: None Estimated blood loss: 250 mL with cell Saver given back Indications: 68-year-old gentleman with aortic aneurysm measuring 5.[address] scan now presents for endovascular repair The patient had he is aortic aneurysm confirmed on CT angiogram. Based on the anatomy and topography he is now for endovascular aneurysm repair possible open repair. The patient has signed the informed consent after reviewing risks, complications, benefits, and alternatives previously discussed with the patient. The patient was given the opportunity to ask any additional questions or voice any concerns. All questions were answered to the patient's satisfaction. Procedure in detail: Patient was brought to the operating room prior to which a time-out was called for patient identification and site verification abdomen and bilateral groins were prepped and draped in a standard surgical fashion. Cutdown was performed on the right common femoral artery using standard techniq ue. This was a transverse incision. We then dissected down to the common femoral artery. This was encircled with silastic loops. Left common femoral was accessed under ultrasound guidance with a percutaneous 5 Pakistani sheath. The ipsilateral side which was the right side a 5 Pakistani sheath was then placed as well. Angiogram was performed to measure the vessel length and characterize the anatomy and its topography. We then exchanged for a 7 Pakistani sheath, and then placed a marker pigtail catheter up the left side into the level of the aorta at the level of the renals. On the right side which was the HC side we exchanged out the Bentson wire for a Lunderquist wire. This was done through a angled glide cath. We parked the tip the Lunderquist at the aortic arch. At this time 10,000 units of heparin was administered. After 5 minutes of circulation time we loaded the BE a 28-110/116-30 AFX2 bifurcated device onto the Lunderquist wire and advanced the contralateral wire up through the 19 Pakistani OD FX introducer sheath using the wire guide. Contralateral wire was snared and pulled out the contra side. FX 2 bifurcated device was then transferred into the a FX introducer sheath and advanced under fluoroscopic guidance until the distal limbs were above the aortic bifurcation releasing the limbs of the graft. We pulled the entire system down on to the aortic bifurcation. We deployed the main body of the graft by pulling on the control cord handle. We then deployed the contra limb by pulling the yellow limb cover, then we advanced a pigtail catheter over the contra wire until the tip was in contact with the wire lock. We held the pigtail catheter in place and pulled the contra wire to release it from the wire lock. We deployed the ipsi limb by pinning the inner core and retracting the a FX introducer sheath. We then deployed a a 34-34/C1 100-020 suprarenal endograft and performed angiogram to visualize the renal arteries. We removed the extension delivery device from the a FX introducer sheath and advanced a Merit Q50X balloon to the proximal end of the endograft main body. We ballooned the endograft system through the main body and ipsilateral limb. We then inserted the balloon through the contralateral side and ballooned the contralateral limb as well. We performed a final angiogram, removed catheters and sheaths. The left groin was closed with a StarClose closure device. The right groin was closed with a 6 0 Prolene in a running fashion. We then reapproximated the deep layer with 2-0 Polysorb. The superficial layer was then reapproximated with a 3-0 Polysorb. Finally skin was closed with a running subcuticular 4 O Monocryl. EpiFix was used as a sterile dressing. At the end the case sponge needle instrument counts were correct. Maury jean-baptiste tolerated the procedure well, and returned to recovery with stable vitals Interpretation of films: 1. Ultrasound guidance demonstrated appropriate puncture 2. Initial aortogram confirmed anatomy and topography the infrarenal aortic aneurysm. 3. Completion angiogram demonstrated appropriate deployment of graft with no evidence of endoleak. Conclusion: Successful deployment Endologix AFX2 aortic endograft. This note is constructed using voice recognition software. While every effort has been made to ensure accuracy, skin fitter errors may have been included. Thank you for allowing me to participate in the care of your patient. Yours sincerely, Reinaldo Tinajero MD, FACS, R.P.V.I.
--- NOTE | 2024-06-21 13:00 | P.HPCC_ITS ---
History of Present Illness Date of Service: 06/21/24 Chief Complaint: Status post elective AAA repair 68-year-old gentleman with underlying hypertension, CAD with prior CT, now postoperative day 0 after an elective endovascular AAA repair being monitored in the intensive care unit. Review of Systems 2 Constitutional: Constitutional: Denies daytime sleepiness, Denies excessive sweating, Denies fatigue, Denies fever(s), Denies lethargy, Denies malaise, Denies night sweats, Denies snoring and Denies weight loss Eyes: Eyes: Denies blurry vision and Denies itchy eyes ENT: Denies nasal congestion, Denies post nasal drip, Denies sinus pain, Denies sinus pressure and Denies other ( Thrush) Cardiovascular: Cardiovascular: Denies chest pain, Denies pedal edema, Denies dyspnea, Denies orthopnea and Denies paroxysmal nocturnal dyspnea Respiratory: Respiratory: Denies cough, Denies hemoptysis, Denies excessive phlegm production, Denies dyspnea, Denies snoring and Denies wheezing Gastrointestinal: Gastrointestinal: Denies abdominal pain and Denies heartburn Musculoskeletal: Musculoskeletal: Denies myalgias, Denies arthralgias and Denies joint swelling Integumentary/Breasts: Skin/Breast: Denies rash Neurologic: Denies memory loss and Denies seizure-like activity Psychiatric: Psychiatric: Denies abnormal sleep pattern, Denies anxiety and Denies memory loss Endocrine: Endocrine: Denies excessive sweating, Denies fatigue and Denies heat intolerance Hematologic/Lymphatic: Hematologic/Lymphatic: Denies easy bruising Allergic/Immunologic: Allergic/Immunologic: Denies itchy eyes, Denies seasonal rhinorrhea and Denies wheezing PMFSH Past Medical History Medical History (Updated 06/21/24 @ 13:02 by Nikolas Weber MD) BPH (benign prostatic hyperplasia) Basal cell carcinoma Spinal arthritis Back pain Habitual snoring Elevated cholesterol Myocardial infarction Corneal abrasion Ex-smoker Nicotine dependence Impaired fasting glucose Retinal artery occlusion Cataract Macular hole Prediabetes Essential hypertension Carpal tunnel syndrome of right wrist Family History Family History (Updated 05/26/24 @ 13:01 by Yudelka Gerber CMA) Father Stented coronary artery Brother DM2 (diabetes mellitus, type 2) Surgical History Surgical History (Updated 06/21/24 @ 13:02 by Nikolas Weber MD) History of tonsillectomy History of carpal tunnel release History of surgical removal of pilonidal cyst H/O colonoscopy Hx of cataract extraction Hx of eye surgery S/P skin biopsy Social History Social History (Updated 05/26/24 @ 13:02 by Yudelka Gerber CMA) Household Members: Spouse Housing: House Are you a primary skin care consultant to a significant other at home: No Do you presently have visiting nurse or other home services: No Alcohol intake: current Alcohol intake frequency: a few times a month Comment: social Patient Tobacco Use Status: Former Tobacco user Tobacco use type: Cigarette Patient Interested in Nicotine Replacement: No Use of substances other than those prescribed or required for medical reasons: No Have you been hit, kicked, punched, or otherwise hurt by someone within the past year? If so, by whom?: No Do you feel safe in your current relationship?: Yes Is there a partner from a previous relationship who is making you feel unsafe now?: No Are you made to feel afraid or neglected: No Spiritual Healthcare Practices: n/a Anabaptist Healthcare Practices: n/a Cultural Healthcare Practices: n/a Are you DNR?: No Advance Directives: No Advance Directives Information Provided: No Advance Directives on File: No Do you have a plan to hurt others: No Plan Recently lost weight without trying: No Eating poorly because of decreased appetite: No Nutrition Risks: No Nutritional Risk Poor oral hygiene: No Meds Allergies Allergy/AdvReac Type Severity Reaction Status Date / Time No Known Allergies Allergy Verified 05/25/24 09:09 Active Medications: Current Medications Acetaminophen (Acetaminophen 325 Mg Tablet) 650 mg PO Q6H PRN PRN Reason: Pain, Mild (Pain Scale 1-3), fever or headache Amlodipine Besylate (Amlodipine Besylate 2.5 Mg Tablet) 2.5 mg PO DAILY CURTIS; Protocol Aspirin (Aspirin Enteric Coated 81 Mg Tablet.Dr) 81 mg PO DAILY CURTIS Atorvastatin Calcium (Atorvastatin Calcium 20 Mg Tablet) 20 mg PO DAILY CURTIS Calcium Carbonate (Calcium Carbonate 750 Mg Tab.Chew) 750 mg PO Q4H PRN PRN Reason: Heartburn Lactated Ringer's (Lr) 1,000 mls @ 100 mls/hr IVCONT .Q10H CURTIS Last Admin: 06/21/24 06:42 Dose: 100 mls/hr Cefazolin Sodium/Dextrose (Ancef) 2 gm in 50 mls @ 100 mls/hr IV POSTOP ONE Stop: 06/21/24 14:29 Magnesium Hydroxide (Milk Of Magnesia 30 Ml Oral.Susp) 30 ml PO DAILY PRN PRN Reason: Constipation Melatonin (Melatonin 3 Mg Tablet) 6 mg PO BEDTIME PRN PRN Reason: Insomnia Morphine Sulfate (Morphine Sulfate 2 Mg/Ml Cartridge) 2 mg IVPUSH Q4H PRN; Protocol PRN Reason: Pain, Severe (Pain Scale 7-10) Naloxone HCl (Naloxone Hcl 0.4 Mg/Ml Vial) 0.04 mg IVPUSH Q5M PRN PRN Reason: Excessive sedation or RR < 8 Oxycodone HCl (Oxycodone Hcl Immed Release 5 Mg Tablet) 5 mg PO Q4H PRN PRN Reason: Pain, Moderate(Pain Scale 4-6) Sodium Chloride (0.9 % Sodium Chloride Flush 3 Ml Syringe) 3 ml IVFLUSH QSHIFT CURTIS Tamsulosin HCl (Tamsulosin Hcl 0.4 Mg Capsule) 0.4 mg PO DAILY [facility] Home Medications ?Medication ?Instructions ?Recorded ?Confirmed ?Last Taken ?Type aspirin 81 mg tablet,delayed 81 mg PO DAILY 05/25/24 06/21/24 06/15/24 History release atorvastatin 20 mg tablet 20 mg PO DAILY 05/25/24 06/15/24 06/15/24 History tamsulosin 0.4 mg capsule 0.4 mg PO DAILY 05/25/24 06/21/24 06/20/24 History glucosamine 500 1 cap PO DAILY 05/26/24 06/21/24 06/20/24 History kn-mkivdsgvc-pkzhpnzp comp 400 mg-D3 667 unit-C-Mn cap naproxen 250 mg tablet 250 mg PO BID PRN Pain 05/26/24 06/15/24 06/15/24 History Physical Exam 2 Vital Signs: Vital Signs: Last Vital Signs Temp 97.7 F 06/21/24 11:45 Pulse 66 06/21/24 11:45 Resp 20 06/21/24 11:45 BP 146/60 H 06/21/24 11:45 Pulse Ox 95 06/21/24 11:45 O2 Del Method Room Air 06/21/24 12:20 O2 Flow Rate 2 06/21/24 11:13 BMI result Body Mass Index 37.9 Const: General: no acute distress and alert Nutritional Appearance: not obese Orientation/consciousness: Other orientation findings ( oriented) HEENT: Head: Yes atraumatic Eyes: General: appearance normal, both eyes and all related structures S clerae: sclerae normal EOM: EOMs intact bilaterally Neck: Neck: Yes supple Lymphatic: no lymphadenopathy noted Resp: Effort & Inspection: normal respiratory effort and no use of accessory muscles Auscultation: clear to auscultation bilaterally Cardio: Rate: regular rate Rhythm: regular rhythm Heart sounds: no gallops, no murmurs and no rubs Skin: General skin exam: other ( warm) Extrem: General: No clubbing, No cyanosis and No edema Results Labs 06/21/24 06:34 06/21/24 06:34 Labs: Laboratory Results - last 24 hr 06/21/24 06:34 MCV 90.4 MCH 31.3 MCHC 34.6 RDW 12.3 Plt Count 112 L MPV 10.8 Absolute Nucleated RBC 0.000 Nucleated RBC % (auto) 0.0 PT 10.5 L INR 0.9 APTT 32.0 Anion Gap 12 Estim Creat Clear Calc 90.6 Estimated GFR > 60 Random Glucose 120 H Calcium 9.4 Assessment and Plan (1) Status post AAA (abdominal aortic aneurysm) repair: Status: Acute (2) CAD (coronary artery disease): Status: Acute Plan Assessment: 68-year-old gentleman with underlying CAD and hypertension now postoperative day 0 after an elective endovascular AAA repair recovering well. Plan: Neuro: No acute issues. Cardiac: Postoperative day 0 after an elective endovascular AAA repair. Vascular surgery service care appreciated. Maintain systolic blood pressure 160. Pulmonary: No acute issues. Renal: No acute issues. Endo: No acute issues. GI: No acute issues. ID: No acute issues Heme/Onc: No acute issues. Psych: No acute issues. Miscellaneous: No acute issues. Prophylaxis: Per vascular service Diet: Regular
[2024-06-21] MEDS: ceFAZolin Sodium/Dextrose,Iso 2 GM/50 ML PIGGYBACK IV (14:02)
[2024-06-21] MEDS: 0.9 % Sodium Chloride Flush 3 ML SYRINGE IVFLUSH ×2 (15:50→19:37)
[2024-06-22] VITALS (16 sets, daily range): BP systolic 105–149; BP diastolic 49–69; PULSE 58–82; RESP 15–25; TEMP 36.6–37.1; O2SAT 93–99; BMI 38.7
[2024-06-22] MEDS: Melatonin 3 MG TABLET 6 MG PO (01:48)
[2024-06-22 05:39] LABS: MANUAL DIFF FLAG NO
[2024-06-22 05:42] LABS: Basophils Percent Auto 0.1 % (0-2); Eosinophils Percent Auto 0.1 % (0-4); Hematocrit 40.5 % (42.0-52.0); Hemoglobin 13.7 g/dl (14.0-18.0); Imm Gran Abs Auto 0.06 X10*3/uL (0.00-0.03); Imm Gran Pct Auto 0.4 % (0.0-0.4); Lymphocytes Absolute Auto 1.3 X10*3/uL (1.2-4.9); Lymphocytes Percent Auto 9.6 % (20-40); Mean Corpuscular HGB Conc 33.8 g/dl (31.0-36.0); Mean Corpuscular Hemoglobin 31.4 pg (27.0-33.0); Mean Corpuscular Volume 92.7 fL (80.0-98.0); Mean Platelet Volume 10.9 fL (9.4-12.4); Monocytes Absolute Auto 0.9 X10*3/uL (0.1-1.2); Monocytes Percent Auto 6.9 % (2-11); Neutrophils Absolute Auto 11.3 x10*3/uL (2.0-8.3); Neutrophils Percent Auto 82.9 % (45-73); Platelet Count 106 X10*3/uL (160-400); Red Blood Count 4.37 X10*6/uL (4.60-5.80); Red Cell Distribution Width 12.3 % (11.0-16.0); White Blood Count 13.6 X10*3/uL (4.8-10.8)
[2024-06-22 05:59] LABS: Albumin Level 3.2 g/dL (3.5-5.0); Anion Gap 11 (12-20); Blood Urea Nitrogen 19 mg/dL (9-16); Calcium 8.4 mg/dL (8.4-10.2); Carbon Dioxide 23 mmol/L (22-29); Chloride 110 mmol/L (96-108); Creatinine Clr Calc Pharmacy 78.8; Estimated Glomerular Filt Rate > 60; Glucose Random 139 mg/dL (60-115); Magnesium 1.8 mg/dL (1.6-2.6); Phosphorus 3.3 mg/dL (2.7-4.5); Potassium 4.1 mmol/L (3.3-5.1); Sodium 140 mmol/L (135-145)
[2024-06-22] MEDS: Albumin Human 25 % 100 ML IV (07:49)
[2024-06-22] MEDS: 0.9 % Sodium Chloride Flush 3 ML SYRINGE IVFLUSH (07:53)
[2024-06-22] MEDS: Aspirin Enteric Coated 81 MG TABLET.DR PO (08:00)
[2024-06-22] MEDS: Tamsulosin HCL 0.4 MG CAPSULE PO (08:00)
[2024-06-22] MEDS: Atorvastatin Calcium 20 MG TABLET PO (08:00)
[2024-06-22] MEDS: amLODIPine Besylate 2.5 MG TABLET PO (08:01)
[2024-06-22] MEDS: oxyCODONE HCl Immed Release 5 MG TABLET PO (08:03)
[2024-06-22] MEDS: Lactated Ringers 1,000 ML 100 ML IVCONT (08:46)
--- NOTE | 2024-06-22 10:18 | HO.POSTANES ---
Post Anesthesia Evaluation Post Anesthesia Evaluation Date of Service: 06/21/24 Vital Signs: Vital Signs Temp Pulse Pulse Pulse Resp BP Pulse Ox 06/22/24 09:00 70 18 142/59 H 95 06/22/24 08:01 144/64 H 06/22/24 08:00 98.7 F 72 18 145/69 H 95 06/22/24 07:00 63 18 130/60 96 06/22/24 05:59 69 17 149/67 H 96 06/22/24 05:00 59 19 129/52 L 95 06/22/24 04:00 66 66 06/22/24 04:00 69 19 142/61 H 96 06/22/24 03:00 58 21 H 125/49 L 95 06/22/24 01:59 65 20 123/52 L 95 06/22/24 00:58 72 20 127/52 L 94 06/22/24 00:00 98.5 F 66 21 H 131/52 L 93 06/21/24 23:20 76 76 06/21/24 23:00 67 27 H 115/49 L 94 06/21/24 23:00 98.2 F 76 18 122/54 L 95 O2 Del Method 06/22/24 09:00 Room Air 06/22/24 08:01 06/22/24 08:00 Room Air 06/22/24 07:00 Room Air 06/22/24 05:59 Room Air 06/22/24 05:00 Room Air 06/22/24 04:00 06/22/24 04:00 Room Air 06/22/24 03:00 Room Air 06/22/24 01:59 Room Air 06/22/24 00:58 Room Air 06/22/24 00:00 Room Air 06/21/24 23:20 06/21/24 23:00 Room Air 06/21/24 23:00 Room Air Anesthesia: General Endotracheal-GETA Mental Status: Awake Pain Control: Satisfactory Nausea/Vomiting: None Hydration: Adequate Anesthesia-Related Issues: No Anes. Related Issues
--- NOTE | 2024-06-22 12:54 | P.DS_ITS ---
DS: Providers Provider Date of Service: 06/22/24 Date of admission: 06/21/24 06:08 Primary care physician: Doris Orantes MD DS: Diagnosis Discharge Diagnosis (1) Status post AAA (abdominal aortic aneurysm) repair: Status: Acute (2) CAD (coronary artery disease): Status: Acute DS: Summary Hospital Course Hospital Course: Patient underwent endovascular repair on 06/21/2024 with Endologix a FX 2 device. No postprocedure issues. Was observed overnight. Postop day 1 was tolerating regular diet and voiding freely. Had no bleeding with urine output. He was stable for discharge. Time Attestation Discharge Coordination Time (in mins): 35 Quality: Safe Use of Opioids Does Pt have an Active Cancer Diagnosis on the Problem List?: No Quality: Stroke Does the patient have a stroke diagnosis?: No Physical Exam Vital Signs: Vital Signs: Last Vital Signs Temp 98.7 F 06/22/24 08:00 Pulse 59 06/22/24 11:00 Resp 25 H 06/22/24 11:00 BP 113/59 L 06/22/24 11:00 Pulse Ox 96 06/22/24 11:18 O2 Del Method Room Air 06/22/24 11:18 O2 Flow Rate 2 06/21/24 11:13 BMI result Body Mass Index 38.7 Const: General: cooperative, healthy appearing and no acute distress Orientation/consciousness: oriented to person, oriented to place and oriented to time HEENT: Head: Yes normal to inspection Neck: Carotids: no bruits Chest: Chest palpation & inspection: normal inspection of the chest Resp: Effort & Inspection: normal respiratory effort and able to speak in complete sentences Auscultation: clear to auscultation bilaterally Cardio: Rate: regular rate Heart sounds: S1 normal heart sound present and S2 normal heart sound present GI: Inspection: Yes normal to inspection Skin: Other: Bilateral groins healing well General skin exam: no rashes or lesions noted Wounds: no wounds Neuro: General: oriented to person, oriented to place, oriented to time and CN's II-XI intact bilaterally Extrem: General: Yes normal to inspection, Yes full ROM and Yes no clubbing, cyanosis or edema Psych: Appearance: grossly normal and well kempt Speech and movement: Normal speech and movement present Affect: normal affect DS: Data Data Completed and Pending Labs on day of discharge: Laboratory Results - last 24 hr 06/21/24 06/22/24 13:40 05:26 WBC 13.6 H RBC 4.37 L Hgb 13.7 L Hct 40.5 L MCV 92.7 MCH 31.4 MCHC 33.8 RDW 12.3 Plt Count 106 L MPV 10.9 Immature Gran % (Auto) 0.4 Neut % (Auto) 82.9 H Lymph % (Auto) 9.6 L [place] % (Auto) 6.9 Eos % (Auto) 0.1 Baso % (Auto) 0.1 Lymph # (Auto) 1.3 [place] # (Auto) 0.9 Eos # (Auto) 0.0 Baso # (Auto) 0.0 Abs Immat Gran (auto) 0.06 H Absolute Neuts (auto) 11.3 H Absolute Nucleated RBC 0.000 Nucleated RBC % (auto) 0.0 Sodium 140 Potassium 4.1 Chloride 110 H Carbon Dioxide 23 Anion Gap 11 L BUN 19 H Creatinine 1.09 Estim Creat Clear Calc 78.8 Estimated GFR > 60 Random Glucose 139 H Calcium 8.4 D Phosphorus 3.3 Magnesium 1.8 Albumin 3.2 L Blood Type A Positive Antibody Screen NEGATIVE Discharge Plan Discharge Anticipated Discharge Date/Time: 06/22/24 12:49 Patient Disposition: Home, Self-Care Discharge Diagnosis: Says status post endovascular aortic aneurysm repair Referrals: Doris Simms MD [Primary Care Provider] - 1 Week Discharge Medications: New oxycodone-acetaminophen [Percocet] 5-325 mg tablet 1 tab PO Q8H PRN (Reason: pain) Qty: 10 0RF Rx Instructions: Partial Fill upon patient request. Continued tamsulosin 0.4 mg capsule 0.4 mg PO DAILY aspirin 81 mg tablet,delayed release (DR/EC) 81 mg PO DAILY atorvastatin 20 mg tablet 20 mg PO DAILY naproxen 250 mg tablet 250 mg PO BID PRN (Reason: Pain) pudu-ugjmqn-gdwcqjkb-D3-C-Mn 500-400-667 mg-mg-unit capsule 1 cap PO DAILY amlodipine 2.5 mg tablet 2.5 mg PO DAILY Qty: 90 3RF Discharge Orders: Discharge Order (Routine); Ordered 06/22/24 Ordered By: Reinaldo Tinajero Diet: Advance to usual diet Activity on Discharge: As tolerated Stand Alone Forms: Patient Portal Discharge page Print Language: Khmer Activity Restrictions/Additional Instructions: Skin glue was used and you may shower as early as tomorrow. Take it easy today and you may ambulate around the house. Within 24 hours you can resume normal activity You may climb a flight of stairs as tolerated Do not lift anything heavier than a gallon of milk until seen by me See Dr. Tinajero in follow-up in approximately 2 weeks time. You should already have an appointment if not please call my office at [phone] Please use Tylenol as needed for pain. If required a narcotic pain script has been sent to your pharmacy If you notice excessive bleeding from the groin please immediately call my office or return to the emergency room. Care Plan Goals: Surveillance follow-up of aneurysm Health Concerns: Aortic aneurysm Plan of Treatment: Surveillance follow-up of annual Assessment: Status post endovascular aneurysm repair
--- NOTE | 2024-06-22 14:33 | MHC.CM.PN ---
Pt resides w/spouse: is independent with ADL's and has no services. Spouse to transport pt to home. IMM and [employer] form in chart
== END 2024-06-22 13:27 | disposition home or self-care (01) | DRG 269 ==
LOC: HO.SSSA 10:57 → HO.ICU 11:07
PROVIDERS: Nurse Practitioner; Admitting Provider Surgery Vascular Surgery; PCP Family Medicine; Visit Provider Internal Medicine Pulmonary Disease
PROC: 04V03ZZ Restriction of Abdominal Aorta, Percutaneous Approach (ICD-10-PCS; principal; 2024-06-21 07:30)
DX: I71.40 Abdominal aortic aneurysm, without rupture, unspecified (principal); I25.10 Atherosclerotic heart disease of native coronary artery without angina pectoris; I10 Essential (primary) hypertension; I25.2 Old myocardial infarction; Z87.891 Personal history of nicotine dependence; Z79.82 Long term (current) use of aspirin; Z79.899 Other long term (current) drug therapy
CPT/HCPCS: 36415; 80048; 82040; 83735; 84100; 85025; 85027; 85610; 85730; 86850; 86900; 86901; A4649; C1760; C1769; C1773; C1887; C1889; C1894; C2628; C9250; J0131; J0690; J1100; J1644; J2250; J2305; J2371; J2405; J2704; J2795; J3010; J7120; P9047; Q9967

== ENCOUNTER → 2024-06-21 06:08 | Outpatient (BNV) | payer MEDICARE, SELFPAY | PROVIDERS: Admitting Provider Surgery Vascular Surgery; PCP Family Medicine; Visit Provider Surgery Vascular Surgery | DX: I71.40 Abdominal aortic aneurysm, without rupture, unspecified (principal) | CPT/HCPCS: 34705; 34812; 99024 ==

== ENCOUNTER → 2024-06-21 06:08 | Outpatient (BNV) | payer MEDICARE, SELFPAY | PROVIDERS: Admitting Provider Surgery Vascular Surgery; PCP Family Medicine; Visit Provider Internal Medicine Pulmonary Disease | DX: I25.10 Atherosclerotic heart disease of native coronary artery without angina pectoris (principal); Z86.79 Personal history of other diseases of the circulatory system | CPT/HCPCS: 99222 ==

== ENCOUNTER 2024-07-06 08:47 | Outpatient (AMB) | payer MEDICARE, SELFPAY ==
[2024-07-06 09:03] VITALS: BMI 38.0
--- NOTE | 2024-07-06 09:03 | A.OFFVIS_ITS ---
Vital Signs 3 07/06/24 09:03 Height 5 ft 8 in Weight 250 lb BMI 38.0 Intake Visit Reasons: 2 week follow up EVAR Intake Note: 2 week follow up EVAR 06/21/24. Pt states no complaints. Accompanied by: Self / Same As Patient Allergies No Known Allergies Allergy (Verified 07/06/24 09:05) HPI HPI 2 week follow up EVAR: Details: Pleasant 68-year-old gentleman presents for routine follow-up postop endovascular aortic aneurysm repair he has had no significant postoperative issues. Of note during the operation he had a difficult Nath insertion and had hematuria. Otherwise doing relatively well. He is seeing Dermatology tomorrow regarding basal cell carcinoma. [facility] Medical History BPH (benign prostatic hyperplasia) Basal cell carcinoma Spinal arthritis Back pain Habitual snoring Elevated cholesterol Myocardial infarction Corneal abrasion Ex-smoker Nicotine dependence Impaired fasting glucose Retinal artery occlusion Cataract Macular hole Prediabetes Essential hypertension Carpal tunnel syndrome of right wrist Surgical History History of tonsillectomy History of carpal tunnel release History of surgical removal of pilonidal cyst H/O colonoscopy Hx of cataract extraction Hx of eye surgery S/P skin biopsy Family History Father Stented coronary artery Brother DM2 (diabetes mellitus, type 2) Social History Household Members: Spouse Housing: House Are you a primary rental boats caretaker to a significant other at home: No Do you presently have visiting nurse or other home services: No Alcohol intake: current Alcohol intake frequency: a few times a month Comment: social Patient Tobacco Use Status: Former Tobacco user Tobacco use type: Cigarette Review of Systems Const All systems reviewed & are unremarkable except as noted in HPI and below Reports no additional complaints ENT Reports Normal hearing present Card Denies chest pain, Denies chest pain at rest, Denies chest pain with activity and Denies pedal edema Resp Denies cough GI Denies abdominal pain Musc Denies abnormal gait, Denies muscle cramps and Denies radiating pain into limb Skin/Breast Denies skin ulcer and Denies wounds Neuro Reports Normal hearing present and Denies abnormal gait Psych Reports no additional complaints Physical Exam Vital Signs: BMI result Body Mass Index 38.0 Const General: cooperative, healthy appearing and comfortable Orientation/consciousness: oriented to person, oriented to place and oriented to time HEENT Head: Yes normal to inspection Neck Neck: Yes normal visual inspection Carotids: no bruits Chest Chest palpation & inspection: normal inspection of the chest Resp Effort & Inspection: normal respiratory effort and able to speak in complete sentences Auscultation: clear to auscultation bilaterally, no crackles, no rales, no rhonchi and no wheezes Cardio Rate: regular rate Rhythm: regular rhythm Heart sounds: S1 normal heart sound present and S2 normal heart sound present Bruits: no carotid bruits Peripheral pulses: Peripheral pulses 2+ throughout GI Inspection: Yes normal to inspection Abdomen image: 2 1. Umbilical hernia Skin Other: Right groin incision at left groin puncture well healed Wounds: no wounds Hair: normal Neuro General: oriented to person, oriented to place and oriented to time Cranial nerves: Yes CN's II-XII intact bilaterally and Yes Normal hearing present Cognition (Neuro): normal cognition Motor exam (neuro): 5/5 motor strength present throughout Extrem Other: venous exam: No significant superficial varicosities or spider telangiectasias, minimal edema General: No clubbing, No cyanosis and No edema Psych Appearance: grossly normal Mental Status: mental status grossly normal Speech and movement: Normal speech and movement present Assessment & Plan Assessment & Plan (1) AAA (abdominal aortic aneurysm) without rupture: Comment: 06/21/2024 - endovascular aortic aneurysm repair (Endologix a FX 2) Code(s): I71.40 - Abdominal aortic aneurysm, without rupture, unspecified Category: Medical Qualifiers: Abdominal aorta location: infrarenal aorta Qualified Code(s): I71.43 - Infrarenal abdominal aortic aneurysm, without rupture Plan: In short patient has done extremely well status post endovascular aneurysm repair. Will plan for surveillance CT scan and the patient will follow up with us. Thank you for allowing us to assist in his care. Please note a longitudinal relationship has been created with the patient and we have been following and surveillance this chronic condition. The patient had an opportunity to ask questions regarding the treatment plan. All questions were answered. Imaging studies, laboratory studies and physical exam results were discussed and reviewed in detail. No major barriers to understanding were identified. The patient expressed understanding and agreement with the above treatment plan. The patient is aware they should contact our office by phone for worsening of the current condition or the appearance of new symptoms. Thank you for allowing me to participate in the vascular care of this patient. If you have any questions or concerns regarding the treatment for the above condition please do not hesitate to contact me. The office telephone contact is [phone]. This note is constructed using voice recognition software. While every effort has been made to ensure accuracy, cardiology consultants errors may have been included. Thank you for allowing me to participate in the care of your patient. Yours sincerely, Reinaldo Tinajero MD, FACS, R.P.V.I. (2) Umbilical hernia: Code(s): K42.9 - Umbilical hernia without obstruction or gangrene Category: Medical Qualifiers: Obstruction and gangrene presence: without obstruction or gangrene Q ualified Code(s): K42.9 - Umbilical hernia without obstruction or gangrene Plan: Patient with umbilical hernia. I did discuss this with the patient and will refer to General surgery to get this taken care of. (3) Hematuria: Code(s): R31.9 - Hematuria, unspecified Category: Medical Qualifiers: Hematuria type: unspecified type Qualified Code(s): R31.9 - Hematuria, unspecified Plan: He did have difficulty with Nath placement and hematuria. This appears to have resolved. He does have follow-up with Urology scheduled in [place]. I encouraged him to keep that appointment for overall prostate check. He does seem to be doing relatively well with his Flomax but wanted to make sure there is no other underlying issues on identified. He is in agreement and he will schedule. Orders: Orders 2 Blood Urea Nitrogen Today I71.43 - Infrarenal abdominal aortic aneurysm, without rupture Creatinine Today I71.43 - Infrarenal abdominal aortic aneurysm, without rupture CT angio abdomen pelvis 1 Week I71.43 - Infrarenal abdominal aortic aneurysm, without rupture Coding Level of Care Code Global (69750) Diagnoses Infrarenal abdominal aortic aneurysm (AAA) without rupture I71.43 Abdominal aorta location: infrarenal aorta Umbilical hernia without obstruction and without gangrene K42.9 Obstruction and gangrene presence: without obstruction or gangrene Hematuria, unspecified type R31.9 Hematuria type: unspecified type
== END 2024-07-06 09:23 | disposition home or self-care (01) ==
PROVIDERS: PCP Family Medicine; Visit Provider Surgery Vascular Surgery
DX: I71.43 Infrarenal abdominal aortic aneurysm, without rupture (principal); K42.9 Umbilical hernia without obstruction or gangrene; R31.9 Hematuria, unspecified
CPT/HCPCS: 99024

== ENCOUNTER → 2024-07-06 08:47 | Outpatient (BNVA) | payer MEDICARE, SELFPAY | PROVIDERS: PCP Family Medicine; Visit Provider Surgery Vascular Surgery | DX: I71.43 Infrarenal abdominal aortic aneurysm, without rupture (principal); R31.9 Hematuria, unspecified; K42.9 Umbilical hernia without obstruction or gangrene | CPT/HCPCS: 99212 ==

== ENCOUNTER 2024-07-26 09:23 | Outpatient (AMB) | payer MEDICARE, SELFPAY ==
--- NOTE | 2024-07-26 09:24 | A.OFFVIS_ITS ---
Vital Signs 07/26/24 09:28 Height 5 ft 8 in Weight 254 lb BMI 38.6 Intake Visit Reasons: Umbilical hernia Intake Note: This patient was referred by for an umbilical hernia. Pt c/o; reports no pain, reports no bulge, reports no changes to bowel habits. Cafeteria Or Lunchroom Checker Required: No Accompanied by: Self / Same As Patient Allergies No Known Allergies Allergy (Verified 07/26/24 09:29) Medication List - Last Reconciled 07/26/24 by Justen Orellana MD amlodipine 2.5 mg PO DAILY aspirin 81 mg PO DAILY atorvastatin 20 mg PO DAILY ukux-gdlpsx-ajofawih-D3-C-Mn 500-400-667 mg-mg-unit 1 cap PO DAILY naproxen 250 mg PO BID PRN oxycodone-acetaminophen 5-325 mg (Percocet) 1 tab PO Q8H PRN tamsulosin 0.4 mg PO DAILY HPI HPI Umbilical hernia: Details: 68-year-old male referred for an umbilical hernia. He says he has had this reducible lump on his umbilicus for ?many years?. He says that this would pop out every so often and would cause some occasional discomfort He had undergone endovascular repair of an aortic aneurysm with Dr. Tinajero about a month ago. He had done well with the procedure He says he used to be a smoker. He otherwise denies GI complaints. [facility] Medical History BPH (benign prostatic hyperplasia) Basal cell carcinoma Spinal arthritis Back pain Habitual snoring Elevated cholesterol Myocardial infarction Corneal abrasion Ex-smoker Nicotine dependence Impaired fasting glucose Retinal artery occlusion Cataract Macular hole Prediabetes Essential hypertension Carpal tunnel syndrome of right wrist Surgical History History of tonsillectomy History of carpal tunnel release History of surgical removal of pilonidal cyst H/O colonoscopy Hx of cataract extraction Hx of eye surgery S/P skin biopsy Family History Father Stented coronary artery Brother DM2 (diabetes mellitus, type 2) Social History Household Members: Spouse Housing: House Are you a primary director of medicare to a significant other at home: No Do you presently have visiting nurse or other home services: No Alcohol intake: current Alcohol intake frequency: a few times a month Comment: social Patient Tobacco Use Status: Former Tobacco user Tobacco use type: Cigarette Review of Systems Const Denies chills and Denies fever(s) Card Denies chest pain, Denies dyspnea and Denies dyspnea on exertion Resp Denies cough, Denies dyspnea and Denies dyspnea on exertion GI Denies hematochezia and Denies change in bowel habits Denies hematuria and Denies difficulty urinating Musc Denies back pain and Denies limited range of motion Neuro Denies focal weakness and Denies convulsions Psych Denies depression and Denies mood swings Physical Exam Vital Signs: BMI result Body Mass Index 38.6 Const General: comfortable and no acute distress Orientation/consciousness: patient oriented x3 Neck Neck: Yes no lymphadenopathy Resp Auscultation: clear to auscultation bilaterally Cardio Rhythm: regular rhythm GI Other: Has a reducible umbilical hernia, about 1.5 cm in diameter Palpation (GI): Soft to palpation, nontender and no guarding Neuro General: patient oriented x3 Assessment & Plan Assessment & Plan (1) Umbilical hernia: Code(s): K42.9 - Umbilical hernia without obstruction or gangrene Category: Medical Qualifiers: Obstruction and gangrene presence: without obstruction or gangrene Qualified Code(s): K42.9 - Umbilical hernia without obstruction or gangrene Plan: He has a reducible umbilical hernia as described above. He wants to proceed with repair. I explained the technique of repair with possible mesh placement. I reviewed the risks including but not limited to bleeding, infections, bowel injury, recurrence, postop pain, as well as the benefits and alternatives. I also explained to him what to expect postoperatively. He has given consent. He is not on any blood thinners after endovascular repair of an aortic aneurysm. Coding Level of Care Code New Pt Level 3 (29250) Diagnoses Umbilical hernia without obstruction and without gangrene K42.9 Obstruction and gangrene presence: without obstruction or gangrene
[2024-07-26 09:28] VITALS: BMI 38.6
== END 2024-07-26 09:58 | disposition home or self-care (01) ==
LOC: HO.HGS 09:23
PROVIDERS: PCP Family Medicine; Referring Provider Surgery Vascular Surgery; Visit Provider Surgery
DX: K42.9 Umbilical hernia without obstruction or gangrene (principal)
CPT/HCPCS: 99203

== ENCOUNTER → 2024-07-26 09:23 | Outpatient (BNVA) | payer MEDICARE, SELFPAY | PROVIDERS: PCP Family Medicine; Referring Provider Surgery Vascular Surgery; Visit Provider Surgery | DX: K42.9 Umbilical hernia without obstruction or gangrene (principal) | CPT/HCPCS: 99202 ==

== ENCOUNTER 2024-08-24 13:12 | Outpatient (AMB) | payer MEDICARE, SELFPAY ==
[2024-08-24 13:17] VITALS: BP 110/62; PULSE 79; BMI 38.9
--- NOTE | 2024-08-24 13:17 | MHC.OFFVIS ---
Vital Signs 08/24/24 13:17 Height 5 ft 8 in Weight 256 lb 2.834 oz BMI 38.9 BP 110/62 Blood Pressure Location Lt brachial Position Sitting Pulse 79 Pulse Source Pulse Oximeter Intake Visit Reasons: 3 month f/up Earrings Fabricator Required: No Accompanied by: Self / Same As Patient Allergies No Known Allergies Allergy (Verified 08/16/24 14:44) Medication List - Last Reconciled 08/24/24 by Girish Lyn MD acetaminophen 650 mg PO Q6H PRN amlodipine 2.5 mg PO DAILY aspirin 81 mg PO DAILY atorvastatin 20 mg PO DAILY aarl-utivdf-ejnmnzaj-D3-C-Mn 500-400-667 mg-mg-unit 1 cap PO DAILY tamsulosin 0.4 mg PO DAILY HPI Comments Details: Moustapha returns for follow-up. He was recently seen in consultation regarding preoperative stratification for endovascular repair of abdominal aortic aneurysm. That seems uneventful. He states he feels fine. No cardiac symptoms whatsoever. No previous history of any coronary disease or myocardial infarction or cardiomyopathy. History of smoking in the past but not recently. 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 Within limits of his activity, he feels fine and does not have any cardiac symptoms. He has had high blood pressures in the past but we had started him on amlodipine and then it has improved significantly. He is also on statins. No plans to go for umbilical hernia repair. [facility] Medical History BPH (benign prostatic hyperplasia) Basal cell carcinoma Spinal arthritis Back pain Habitual snoring Elevated cholesterol Myocardial infarction Corneal abrasion Ex-smoker Nicotine dependence Impaired fasting glucose Retinal artery occlusion Cataract Macular hole Prediabetes Essential hypertension Carpal tunnel syndrome of right wrist Surgical History Hx of aortic aneurysm repair (06/21/24) History of tonsillectomy History of carpal tunnel release History of surgical removal of pilonidal cyst H/O colonoscopy Hx of cataract extraction Hx of eye surgery S/P skin biopsy Family History Father Stented coronary artery Brother DM2 (diabetes mellitus, type 2) Social History Household Members: Spouse Housing: House Are you a primary customer care coordinator to a significant other at home: No Do you presently have visiting nurse or other home services: No Alcohol intake: current Alcohol intake frequency: a few times a month Comment: social Patient Tobacco Use Status: Former Tobacco user Tobacco use type: Cigarette Review of Systems Const Denies chills, Denies fatigue, Denies fever(s), Denies frequent falls, Denies weakness, Denies weight gain and Denies weight loss ENT Denies dizziness Card Denies chest pain, Denies leg edema, Denies lightheadedness, Denies palpitations, Denies dyspnea and Denies dyspnea on exertion Resp Denies cough, Denies dyspnea and Denies dyspnea on exertion GI Denies hematochezia Musc Denies abnormal gait, Denies muscle weakness, Denies numbness, Denies radiating pain into limb and Denies tingling Neuro Denies abnormal gait, Denies dizziness, Denies frequent falls, Denies numbness, Denies tingling and Denies weakness Endo Denies fatigue and Denies palpitations Physical Exam Vital Signs: Last Vital Signs Pulse 79 08/24/24 13:17 BP 110/62 08/24/24 13:17 BMI result Body Mass Index 38.9 Const General: comfortable and no acute distress Orientation/consciousness: patient oriented x3 HEENT Other: Unremarkable Head: Yes normal to inspection Neck Neck: Yes normal visual inspection Chest Chest palpation & inspection: normal inspection of the chest Resp Auscultation: clear to auscultation bilaterally Cardio Palpation: normal PMI Heart sounds: S1 normal heart sound present, S2 normal heart sound present, no gallops, no murmurs and no rubs GI Palpation (GI): Soft to palpation Back/Spine/Pelvis Other: unremarkable Skin General skin exam: no rashes or lesions noted Neuro General: patient oriented x3 Extrem General: Yes normal to inspection Psych Mental Status: mental status grossly normal Assessment & Plan Assessment & Plan (1) Preoperative cardiovascular examination: Code(s): Z01.810 - Encounter for preprocedural cardiovascular examination Category: Medical (2) AAA (abdominal aortic aneurysm) without rupture: Comment: 06/21/2024 - endovascular aortic aneurysm repair (Endologix a FX 2) Code(s): I71.40 - Abdominal aortic aneurysm, without rupture, unspecified Category: Medical Qualifiers: Abdominal aorta location: infrarenal aorta Qualified Code(s): I71.43 - Infrarenal abdominal aortic aneurysm, without rupture (3) Essential hypertension: Code(s): I10 - Essential (primary) hypertension Category: Medical Plan Cardiac studies reviewed. In the echocardiogram, LVEF 60%. Possible basal inferior/inferoseptal/inferolateral hypokinesis. Myocardial perfusion imaging study shows probably normal perfusion. Overall, he has vascular risk factors and abdominal aortic aneurysm status post repair, but no clear-cut active cardiac issues. Continue low-dose aspirin, amlodipine for blood pressure and statins. Lipids can be monitored through his own PCP. LDL 77 mg/dL and triglycerides 86 mg/dL. With regard to umbilical hernia surgery, may proceed. Low cardiac risk. Coding Level of Care Code Est Pt Level 4 (08425) Diagnoses Preoperative cardiovascular examination Z01.810 Infrarenal abdominal aortic aneurysm (AAA) without rupture I71.43 Abdominal aorta location: infrarenal aorta Essential hypertension I10
== END 2024-08-24 13:36 | disposition home or self-care (01) ==
PROVIDERS: Visit Provider Internal Medicine
DX: Z01.810 Encounter for preprocedural cardiovascular examination (principal); I71.43 Infrarenal abdominal aortic aneurysm, without rupture; I10 Essential (primary) hypertension
CPT/HCPCS: 99214

== ENCOUNTER → 2024-08-24 13:12 | Outpatient (BNVA) | payer MEDICARE, SELFPAY | PROVIDERS: Visit Provider Internal Medicine | DX: Z01.810 Encounter for preprocedural cardiovascular examination (principal); I71.43 Infrarenal abdominal aortic aneurysm, without rupture; I10 Essential (primary) hypertension | CPT/HCPCS: 99212 ==

== ENCOUNTER 2024-08-25 08:14 | Outpatient (REF) | payer MEDICARE, SELFPAY ==
[2024-08-25] MEDS: iohexoL 350 MG/ML 100 ML INFUS..BTL 80 ML IV (09:13)
[2024-08-25 10:19] LABS: Creatinine POC 0.9 mg/dL (0.5-1.4); GFR POC > 60
== END 2024-08-25 08:15 | disposition home or self-care (01) ==
LOC: HO.CT 08:14
PROVIDERS: PCP Family Medicine; Visit Provider Surgery Vascular Surgery
DX: I71.43 Infrarenal abdominal aortic aneurysm, without rupture (principal)
CPT/HCPCS: 74174; 82565; Q9967

== ENCOUNTER 2024-08-31 10:48 | Day surgery (SDC) | payer MEDICARE, SELFPAY ==
[2024-08-16 14:42] VITALS: BMI 38.0
--- NOTE | 2024-08-30 13:18 | P.CONAN_ITS ---
Documented by User: Neyda Casarez NP 08/30/24 13:23 HPI - Anesthesia Eval Consult details Narrative: 68yo M for Repair Hernia Umbilical Reducible with possible mesh s/p Aortic Endovascular Repair 05/2024 with GA-ETT 7.5 Uneventful anesthesia and post-op - referred for hernia repair by vascular. 08/2024 cardiac visit, pt remains optimized for surgery Prior to AAA repair, Cardiac optimized by [facility] Cardiology: Cardiac studies reviewed. In the echocardiogram, preserved LVEF; possible basal inferior/inferoseptal/inferolateral hypokinesis. In the perfusion imaging again reduced uptake in the basal inferior wall, but it resolves with CT attenuation correction and hence more suggestive of artifactual finding. Overall, not definitive if he had a prior inferior myocardial event or if the above findings all artifactual. Clinically, he has got absolutely no symptoms. Hence may proceed as planned. Intermediate cardiac risk. [facility] Active Problems Active Problems: All Active Problems Hematuria (Acute) Umbilical hernia (Acute) CAD (coronary artery disease) (Acute) Status post AAA (abdominal aortic aneurysm) repair (Acute) Preoperative cardiovascular examination (Acute) AAA (abdominal aortic aneurysm) without rupture (Acute) Essential hypertension (Acute) Past Medical History Medical History BPH (benign prostatic hyperplasia) Basal cell carcinoma Spinal arthritis Back pain Habitual snoring Elevated cholesterol Myocardial infarction Corneal abrasion Ex-smoker Nicotine dependence Impaired fasting glucose Retinal artery occlusion Cataract Macular hole Prediabetes Essential hypertension Carpal tunnel syndrome of right wrist Family History Family History Father Stented coronary artery Brother DM2 (diabetes mellitus, type 2) Family history of problems with anesthesia: No Surgical History Surgical History Hx of aortic aneurysm repair (06/21/24) History of tonsillectomy History of carpal tunnel release History of surgical removal of pilonidal cyst H/O colonoscopy Hx of cataract extraction Hx of eye surgery S/P skin biopsy History of Problems with Anesthesia: No Social History Social History Household Members: Spouse Housing: House Are you a primary acute care occupational therapist to a significant other at home: No Do you presently have visiting nurse or other home services: No Alcohol intake: current Alcohol intake frequency: a few times a month Comment: social Patient Tobacco Use Status: Former Tobacco user Tobacco use type: Cigarette Smoked in Last 30 Days: No Use of substances other than those prescribed or required for medical reasons: No Have you been hit, kicked, punched, or otherwise hurt by someone within the past year? If so, by whom?: No Are you DNR?: No Advance Directives: No Advance Directives Information Provided: Yes Advance Directives on File: No Healthcare Proxy: No Recently lost weight without trying: No Nutrition Risks: No Nutritional Risk Meds Allergies Allergy/AdvReac Type Severity Reaction Status Date / Time No Known Allergies Allergy Verified 08/31/24 12:08 Home Medications ?Medication ?Instructions ?Recorded ?Confirmed ?Last Taken ?Type aspirin 81 mg tablet,delayed 81 mg PO DAILY 05/25/24 08/24/24 08/30/24 History release atorvastatin 20 mg tablet 20 mg PO DAILY 05/25/24 08/24/24 06/15/24 History tamsulosin 0.4 mg capsule 0.4 mg PO DAILY 05/25/24 08/24/24 06/20/24 History glucosamine 500 1 cap PO DAILY 05/26/24 08/24/24 06/20/24 History nj-bfhrhphbc-hckkueyq comp 400 mg-D3 667 unit-C-Mn cap acetaminophen 325 mg tablet 650 mg PO Q6H PRN Pain 08/16/24 08/24/24 Unknown History Exam Height,Weight and Vital Signs: Height 5 ft 8 in Weight 113.398 kg Pertinent Lab Results Pertinent Lab Results: Laboratory Tests 06/22/24 05:26 WBC 13.6 H Hgb 13.7 L Hct 40.5 L Plt Count 106 L Sodium 140 Potassium 4.1 Chloride 110 H Carbon Dioxide 23 BUN 19 H Creatinine 1.09 Narrative Narrative: EKG 05/2024 sinus rhythm at 66/Min; no significant ST-T changes and otherwise unremarkable. Normal MA and corrected QT. ECHO 05/2024 Conclusions: - The left ventricular systolic function is normal. The calculated ejection fraction is 62% by biplane method. - Possible basal inferior/inferoseptal/inferolateral hypokinesis. - No obvious valvular pathology seen on this study. MO cardiolite stress test 05/2024 Impression: 1. Myocardial perfusion imaging study shows probably normal myocardial perfusion.. 2. Gated LVEF is 58% during stress and 59% during rest. 3. Transient ischemic dilatation not present. EKG component of the test reported separately. Assessment and Plan Assessment Anesthesia Assessment: Chart Reviewed Final Anesthetic Review Family History of Problems with Anesthesia: No History of Problems with Anesthesia: No Documented by User: Dom Espinosa MD 08/31/24 13:16 [facility] Past Medical History Medical History BPH (benign prostatic hyperplasia) Basal cell carcinoma Spinal arthritis Back pain Habitual snoring Elevated cholesterol Myocardial infarction Corneal abrasion Ex-smoker Nicotine dependence Impaired fasting glucose Retinal artery occlusion Cataract Macular hole Prediabetes Essential hypertension Carpal tunnel syndrome of right wrist Family History Family History Father Stented coronary artery Brother DM2 (diabetes mellitus, type 2) Surgical History Surgical History Hx of aortic aneurysm repair (06/21/24) History of tonsillectomy History of carpal tunnel release History of surgical removal of pilonidal cyst H/O colonoscopy Hx of cataract extraction Hx of eye surgery S/P skin biopsy Social History Social History Household Members: Spouse Housing: House Are you a primary acute care occupational therapist to a significant other at home: No Do you presently have visiting nurse or other home services: No Alcohol intake: current Alcohol intake frequency: a few times a month Comment: social Patient Tobacco Use Status: Former Tobacco user Tobacco use type: Cigarette Smoked in Last 30 Days: No Use of substances other than those prescribed or required for medical reasons: No Have you been hit, kicked, punched, or otherwise hurt by someone within the past year? If so, by whom?: No Are you DNR?: No Advance Directives: No Advance Directives Information Provided: Yes Advance Directives on File: No Healthcare Proxy: No Recently lost weight without trying: No Nutrition Risks: No Nutritional Risk Meds Allergies Allergy/AdvReac Type Severity Reaction Status Date / Time No Known Allergies Allergy Verified 08/31/24 12:08 Home Medications ?Medication ?Instructions ?Recorded ?Confirmed ?Last Taken ?Type aspirin 81 mg tablet,delayed 81 mg PO DAILY 05/25/24 08/24/24 08/30/24 History release atorvastatin 20 mg tablet 20 mg PO DAILY 05/25/24 08/24/24 06/15/24 History tamsulosin 0.4 mg capsule 0.4 mg PO DAILY 05/25/24 08/24/24 06/20/24 History glucosamine 500 1 cap PO DAILY 05/26/24 08/24/24 06/20/24 History ve-cvfhsqjfi-tokynoun comp 400 mg-D3 667 unit-C-Mn cap acetaminophen 325 mg tablet 650 mg PO Q6H PRN Pain 08/16/24 08/24/24 Unknown History Exam Airway Mallampati Class: III TM Dist: >3cm Loose/Missing/Broken Teeth: Yes Assessment and Plan Assessment Anesthesia Assessment: Anesthesia Plan Discussed Final Anesthetic Review NPO: Yes ASA Class: III Final Preanesthetic Review: No Changes in Pt Med Stat, Meds/Allgs Chart Reviewed, Consent Obtained/Reviewed and Anes Risks/Benef Reviewed Patient Risk: Intermediate Procedure Risk: Low Anesthetic Plan Anesthetic Plan: GA Disposition: Standard PACU
[2024-08-31] MEDS: Lactated Ringers 1,000 ML 100 ML IVCONT (11:57)
[2024-08-31 12:12] VITALS: BP 127/80; PULSE 63; RESP 18; TEMP 36.7; O2SAT 96
--- NOTE | 2024-08-31 12:45 | MHC.SHP ---
Pre-Procedural Eval Section A - 24 Hr Update-Section A only Date of Service: 08/31/24 Section B - Complete if H&P > 30 days Chief Complaint: Umbilical hernia without obstruction or gangrene Details of Present Illness: Small reducible umbilical hernia Relevant Social History: None Present Medications: see Short Stay Collaborative assessment Medical History: Significant History (AAA, CAD, hypertension) Allergies: Allergies Allergy/AdvReac Type Severity Reaction Status Date / Time No Known Allergies Allergy Verified 08/31/24 12:08 Review of Systems Sugical H&P ROS: Negative: Constitution, Cardiovascular, Respiratory, Gastrointestinal and Genitourinary Exam Surgical H&P Exam: Normal: Heart, Normal: Lungs and Normal: Extremities and Significant Findings: Abdomen (Umbilical hernia about 2 cm) Plan Diagnosis/Plan: Unchanged I have reviewed the history and physical and performed a pertinent physical examination on my patient. No changes have occurred unless specified. Time Spent With Patient Time: Total time managing care of this patient today ____ minutes.
--- NOTE | 2024-08-31 13:24 | P.OP_ITS ---
Operative Note Operative Note Date of Service: 08/31/24 Narrative: Preop diagnosis: Umbilical hernia, reducible Postop diagnosis: The same Procedure : Repair of umbilical hernia with mesh Surgeon: Justen Orellana MD kindergarten instructional assistant: STEVE Webber The patient is a 68-year-old male with an umbilical hernia, reducible. In view of symptoms he wanted to proceed with the repair. He understood the technique of repair with mesh. He was aware of the risks, benefits, and alternatives. He was brought to the operating room. He was placed supine under general anesthesia via laryngeal mask airway. The abdomen was prepped and draped in the usual sterile fashion. A surgical time-out was done. The patient received cefazolin 2 g IV preoperatively I infiltrated the planned line of incision with lidocaine 1%. I made a supraumbilical transverse curvilinear incision with a blade 15. This was carried down through the full-thickness of the skin and subcutaneous fat down to the fascia. I gently dissected the umbilicus to lift this off of the flap using Metzenbaum scissors until was able to clearly identify the hernia. The hernia contained fat. I sharply dissected this to separate this from the rest of the subcutaneous layer all the way down to the fascia. I gently dissected this using scissors off of the fascia to be able to reduce this. I was able to reduce this completely. I cleared up the underside of the fascial defect to allow space for the mesh using careful blunt dissection and sharp dissection with scissors with direct visualization The hernia defect measured about 1.5 cm Used a small-sized Ventralex mesh. This was flattened under the hernia defect. I secured the Prolene straps of the mesh on both sides of the fascia with Prolene 2 sutures. I trimmed the Prolene straps flush on the fascial level. I then closed the fascial defect with a dcopst-pj-xeyny Maxon 1 stitch. The umbilicus was tacked down to the fascia with a Polysorb 3-0 stitch to re-create the dimple. The subdermal layer was reapposed with Polysorb 3-0 sutures. Skin closure was achieved with Polysorb 4-0 subcuticular running stitch. The area was infiltrated with Marcaine 0.5% for postop analgesia. Dressings were applied. The procedure was completed The patient tolerated the procedure well. There were no immediate complications. Initial and final counts of sponges and instruments were correct. Estimated blood loss was about 5 cc. The patient was extubated without difficulty and transferred to the recovery room with stable vital signs.
[2024-08-31 13:35] VITALS: BP 146/68; PULSE 81; RESP 16; TEMP 36.1; O2SAT 94
[2024-08-31 13:40] VITALS: BP 137/67; PULSE 81; RESP 16; TEMP 36.1; O2SAT 94
[2024-08-31 13:45] VITALS: BP 125/70; PULSE 78; RESP 16; TEMP 36.1; O2SAT 94
[2024-08-31 13:50] VITALS: BP 130/71; PULSE 90; RESP 16; TEMP 36.1; O2SAT 94
== END 2024-08-31 14:35 | disposition home or self-care (01) ==
PROVIDERS: PCP Family Medicine; Visit Provider Surgery
PROC: (CPT 49591; principal; 2024-08-31 12:30)
DX: K42.9 Umbilical hernia without obstruction or gangrene (principal); I10 Essential (primary) hypertension; I25.10 Atherosclerotic heart disease of native coronary artery without angina pectoris; I25.2 Old myocardial infarction; R73.03 Prediabetes; Z85.828 Personal history of other malignant neoplasm of skin; Z79.82 Long term (current) use of aspirin; Z79.899 Other long term (current) drug therapy; Z79.1 Long term (current) use of non-steroidal anti-inflammatories (NSAID); Z98.890 Other specified postprocedural states; Z87.891 Personal history of nicotine dependence
CPT/HCPCS: 49591; C1781; J0690; J1100; J2003; J2405; J2704; J2795; J3010

== ENCOUNTER → 2024-08-31 10:48 | Outpatient (BNV) | payer MEDICARE, SELFPAY | PROVIDERS: PCP Family Medicine; Visit Provider Surgery | DX: K42.9 Umbilical hernia without obstruction or gangrene (principal) | CPT/HCPCS: 49591 ==

== ENCOUNTER 2024-09-13 10:13 | Outpatient (AMB) | payer MEDICARE, SELFPAY ==
--- NOTE | 2024-09-13 10:40 | A.OFFVIS_ITS ---
Vital Signs 09/13/24 10:44 Height 5 ft 9 in Weight 256 lb BMI 37.8 Intake Visit Reasons: S/P umbilical hernia w/poss mesh Intake Note: This patient presents for post-op assessment status post Repair of umbilical hernia with mesh. Pt c/o; reports no complaints pertaining to surgery. Form Tamping Machine Operator Required: No Accompanied by: Self / Same As Patient Allergies No Known Allergies Allergy (Verified 09/13/24 10:45) HPI HPI S/P umbilical hernia w/poss mesh: Details: He underwent repair of an umbilical hernia with mesh last 08/31/2024. He tolerated procedure well. He currently feels well denies significant complaints. [facility] Medical History BPH (benign prostatic hyperplasia) Basal cell carcinoma Spinal arthritis Back pain Habitual snoring Elevated cholesterol Myocardial infarction Corneal abrasion Ex-smoker Nicotine dependence Impaired fasting glucose Retinal artery occlusion Cataract Macular hole Prediabetes Essential hypertension Carpal tunnel syndrome of right wrist Surgical History Hx of aortic aneurysm repair (06/21/24) History of tonsillectomy History of carpal tunnel release History of surgical removal of pilonidal cyst H/O colonoscopy Hx of cataract extraction Hx of eye surgery S/P skin biopsy Family History Father Stented coronary artery Brother DM2 (diabetes mellitus, type 2) Social History Household Members: Spouse Housing: House Are you a primary after school caregiver to a significant other at home: No Do you presently have visiting nurse or other home services: No Alcohol intake: current Alcohol intake frequency: a few times a month Comment: social Patient Tobacco Use Status: Former Tobacco user Tobacco use type: Cigarette Review of Systems Const Denies chills and Denies fever(s) Card Denies chest pain Resp Denies cough GI Denies abdominal pain and Denies vomiting Physical Exam Const General: comfortable and no acute distress Resp Effort & Inspection: normal respiratory effort GI Other: Incision is well healed, repair site intact, no evidence of infection Palpation (GI): Soft to palpation and not firm Assessment & Plan Assessment & Plan (1) Umbilical hernia: Code(s): K42.9 - Umbilical hernia without obstruction or gangrene Category: Medical Qualifiers: Obstruction and gangrene presence: without obstruction or gangrene Qualified Code(s): K42.9 - Umbilical hernia without obstruction or gangrene Plan: Status post repair with mesh. He is doing well. The incision is well healed. I advised him to avoid lifting anything more than 20 lb for about 2 more weeks. He can otherwise follow up on a p.r.n. basis. Coding Level of Care Code Global (18530) Diagnoses Umbilical hernia without obstruction and without gangrene K42.9 Obstruction and gangrene presence: without obstruction or gangrene
[2024-09-13 10:44] VITALS: BMI 37.8
== END 2024-09-13 10:55 | disposition home or self-care (01) ==
PROVIDERS: PCP Family Medicine; Visit Provider Surgery
DX: K42.9 Umbilical hernia without obstruction or gangrene (principal)
CPT/HCPCS: 99024

== ENCOUNTER → 2024-09-13 10:13 | Outpatient (BNVA) | payer MEDICARE, SELFPAY | PROVIDERS: PCP Family Medicine; Visit Provider Surgery | DX: Z48.815 Encounter for surgical aftercare following surgery on the digestive system (principal); Z98.890 Other specified postprocedural states | CPT/HCPCS: 99212 ==

== ENCOUNTER 2025-08-22 13:54 | Outpatient (AMB) | payer MEDICARE, SELFPAY ==
[2025-08-22 13:58] VITALS: BP 140/78; PULSE 69; BMI 38.7
--- NOTE | 2025-08-22 13:58 | MHC.OFFVIS ---
Vital Signs 08/22/25 13:58 Height 5 ft 9 in Weight 262 lb 5.601 oz BMI 38.7 BP 140/78 H Blood Pressure Location Lt brachial Position Sitting Pulse 69 Pulse Source Monitor Intake Visit Reasons: 1 yr f/up Allergies No Known Allergies Allergy (Verified 09/13/24 10:45) Medication List - Last Reconciled 08/22/25 by Girish Lyn MD acetaminophen 650 mg PO Q6H PRN amlodipine 2.5 mg PO DAILY atorvastatin 20 mg PO DAILY tamsulosin 0.4 mg PO DAILY HPI Comments Details: Moustapha returns for follow-up. Originally seen in consultation regarding preoperative stratification for endovascular repair of abdominal aortic aneurysm. That seems uneventful. Otherwise, he has got risk factors including obesity, hypertension dyslipidemia but seems to be fine for the most part. He has a gained some weight over the last year that he blames on knee pain and having difficulty walking. Otherwise, no clear-cut cardiac concerns and he seems to be getting along okay. Blood pressure is borderline high, which could also be related to knee pain and reduced activity level. [facility] Medical History BPH (benign prostatic hyperplasia) Basal cell carcinoma Spinal arthritis Back pain Habitual snoring Elevated cholesterol Myocardial infarction Corneal abrasion Ex-smoker Nicotine dependence Impaired fasting glucose Retinal artery occlusion Cataract Macular hole Prediabetes Essential hypertension Carpal tunnel syndrome of right wrist Surgical History Hx of aortic aneurysm repair (06/21/24) History of tonsillectomy History of carpal tunnel release History of surgical removal of pilonidal cyst H/O colonoscopy Hx of cataract extraction Hx of eye surgery S/P skin biopsy Family History Father Stented coronary artery Brother DM2 (diabetes mellitus, type 2) Social History Household Members: Spouse Housing: House Are you a primary customer care coordinator to a significant other at home: No Do you presently have visiting nurse or other home services: No Alcohol intake: current Alcohol intake frequency: a few times a month Comment: social Patient Tobacco Use Status: Former Tobacco user Tobacco use type: Cigarette Review of Systems Const Denies weakness ENT Denies dizziness Card Denies chest pain, Denies chest pain with activity, Denies syncope, Denies rapid heart rate, Denies pedal edema, Denies edema, Denies leg edema, Denies lightheadedness, Denies palpitations, Denies dyspnea, Denies dyspnea on exertion and Denies orthopnea Resp Denies cough, Denies dyspnea and Denies dyspnea on exertion GI Denies hematochezia and Denies change in stool character Musc Denies abnormal gait, Denies muscle cramps, Denies muscle weakness, Denies numbness, Denies radiating pain into limb and Denies tingling Neuro Denies abnormal gait, Denies dizziness, Denies syncope, Denies numbness, Denies tingling and Denies weakness Endo Denies palpitations Physical Exam Vital Signs: Last Vital Signs Pulse 69 08/22/25 13:58 BP 140/78 H 08/22/25 13:58 BMI result Body Mass Index 38.7 Const General: comfortable and no acute distress Orientation/consciousness: patient oriented x3 HEENT Other: Unremarkable Head: Yes normal to inspection Neck Neck: Yes normal visual inspection Chest Chest palpation & inspection: normal inspection of the chest Resp Auscultation: clear to auscultation bilaterally Cardio Palpation: normal PMI Heart sounds: S1 normal heart sound present, S2 normal heart sound present, no gallops, no murmurs and no rubs GI Palpation (GI): Soft to palpation Back/Spine/Pelvis Other: unremarkable Skin General skin exam: no rashes or lesions noted Neuro General: patient oriented x3 Extrem General: Yes normal to inspection Psych Mental Status: mental status grossly normal Office Procedures EKG Details: EKG with sinus rhythm at 69/Min; no ischemic changes; [place] [id number], Complete Assessment & Plan Assessment & Plan (1) Morbid obesity: Code(s): E66.01 - Morbid (severe) obesity due to excess calories Category: Medical (2) Essential hypertension: Code(s): I10 - Essential (primary) hypertension Category: Medical (3) AAA (abdominal aortic aneurysm) without rupture: Comment: 06/21/2024 - endovascular aortic aneurysm repair (Endologix a FX 2) Code(s): I71.40 - Abdominal aortic aneurysm, without rupture, unspecified Category: Medical Qualifiers: Abdominal aorta location: infrarenal aorta Qualified Code(s): I71.43 - Infrarenal abdominal aortic aneurysm, without rupture Plan Cardiac studies reviewed. In the echocardiogram, LVEF 60%. Possible basal inferior/inferoseptal/inferolateral hypokinesis. Myocardial perfusion imaging study shows probably normal perfusion. Overall, he has vascular risk factors and abdominal aortic aneurysm status post repair, but no clear-cut active cardiac issues. With regard to his weight, hopefully he can get his knee issues resolved and then resume regular physical activity. With regard to blood pressure, borderline high. He is currently on amlodipine. If he cannot lose any weight and blood pressure seems like this, may need a higher dose. Continue statins. Lipids can be monitored through his own PCP. Last available LDL 77 mg/dL and triglycerides 86 mg/dL. With regard to the abdominal aortic aneurysm repair, he will need to follow up with vascular surgery. Total time spent including review of data, counseling, documentation, coordination of care-31 minutes. Coding Level of Care Code Est Pt Level 4 (86376) Complex visit Add On G2211 Diagnoses Morbid obesity E66.01 Essential hypertension I10 Infrarenal abdominal aortic aneurysm (AAA) without rupture I71.43 Abdominal aorta location: infrarenal aorta CPT Codes EKG - CPT: 32412-[id number], Complete ([id number])
--- OUTSIDE RECORDS SUMMARY | 2025-08-22 17:22 | XMS_ITS | Encounter Summary ---
Author Organization [facility] Address [address] [place] [id number] Phone Care Team Providers Care Workflow Developer Name Role Phone Doris Reid MD Primary Care Prov ider Doris Reid MD Unavailable + Encounter Details Date Type Department Care Team (Late st Contact Info) Description 08/27/2017 Prep for Surgery [facility] Orth[facility] & [facility] Medicine [address] [place] [id number] Jean Paul Vann MD [address] [place] [address] Social History Tobacco Use Types Packs/Day Years Used Date Smoking Tobacco: Former Smokeless Tobacco: Never Sex and Gender Information Value Date Recorded Sex Assigned at Not on file Legal Sex Male 9:56 PM EDT Gender Identity Not on file Sexual Orientation Not on file documented as of this encounter Plan of Treatment Not on file documented as of this encounter Visit Diagnoses Not on filedocumented in this encounter Care Teams Workflow Developer Relationship Specialty Start Date End Date Doris Reid MD PCP - General 07/29/17 Doris Reid MD [address] [place] [id number] Insurance Assigned Provider 3/31/18 8/6/20 documented as of this encounter Additional Source Comments The information contained in this document represents components of the legal health record. It is not the complete legal health record.[facility]
--- OUTSIDE RECORDS SUMMARY | 2025-08-22 17:22 | XMS_ITS | Encounter Summary ---
Author Organization [facility] Address [address] [facility] [address] [place] [phone] Phone Care Team Providers Care Geodetic Advisor Name Role Phone Doris Reid MD Primary Care Prov ider Reason for Referral * MRI/CAT Scan - Closed Specialty Diagnoses / Procedures Referred By Contac t Referred To Contact Radiology Diagnoses Abdominal aortic aneurysm (AAA) without rupture, unspecified part Procedures CT Angio Abdomen CT Angio Abdominal Aorta and Bilateral Lower Extremity Runoff Karli Yuan MD [address] [place] [address] Phone: tel: fax: [email or web address] Referral ID Status Reason Start Date Expiration Date Visits Re quested Visits Authorized [id number] Closed 04/29/2024 04/29/2025 1 1 Encounter Details Date Type Department Care Team (Late st Contact Info) Description 04/29/2024 Transcribe Orders Virtual Department [address] [place] [address] Karli Yuan MD [address] [place] [id number] [email or web address] Abdominal aortic aneurysm (AAA) without rupture, unspecified part (Primary Dx) Social History Tobacco Use Types Packs/Day Years Used Date Smoking Tobacco: Former Cigarettes Q uit: 09/2016 Smokeless Tobacco: Never Alcohol Use Standard Drinks/Week Comments Yes 2 (1 standard drink = 0.6 oz pur e alcohol) Education Answer Date Recorded Are you interested in more education? Not on mikhail e 01/17/2023 Are you concerned about learning? Not on file 01/17/2023 No 01/17/2023 No 01/17/2023 Digital Access Answer Date Recorded No 02/17/2023 No 02/17/2023 No 02/17/2023 Reliable internet access at home? Not on file 02/17/2023 Device with a working camera? Not on file Sex and Gender Information Value Date Recorded Sex Assigned at Not on file Legal Sex Male 9:56 PM EDT Gender Identity Not on file Sexual Orientation Not on file documented as of this encounter Plan of Treatment Not on file documented as of this encounter Results * CT ANGIO ABDOMEN WITH AND WITHOUT CONTRAST (05/10/2024 5:47 PM EDT) Anatomical Region Laterality Modality Abdomen, Abdominal Vasculature C omputed Tomography 05/18/2024 8:37 AM EDT Impressions 05/18/2024 9:00 AM EDT Partially thrombosed infrarenal abdominal aortic aneurysm measuring 5.7 x 4.7 cm. Thrombosed posterior outpouching questionable for pseudoaneurysm. This abuts the anterior L3 vertebral body and retroaortic left renal vein and causes mass- effect on the retroaortic left renal vein.. Accessory right renal artery supplying the upper pole of the right kidney. 1.6 x 1.9 cm indeterminate right adrenal nodule. Narrative 05/18/2024 9:[address] ANGIO ABDOMEN WITH AND WITHOUT CONTRAST Referring clinician's provided indication for this examination in Epic: Outside Radiology Order; abnormal aortic aneurysm TECHNIQUE: Multidetector-row CTA of the abdomen was performed before and after administration of intravenous contrast using tailored dose modulation techniques. Images were reconstructed in the axial, coronal, and sagittal planes, including angiographic image post-processing. COMPARISON: Abdominal ultrasound April 28, 2024 FINDINGS: VASCULAR: Aorta: There is a partially thrombosed infrarenal abdominal aortic aneurysm. This measures 5.6 x 4.7 cm in transverse and AP dimension. This measures 5.5 cm in length. This is 2.6 cm below the lowest accessory right renal artery. This causes mass- effect on a retroaortic left renal vein. Contrast extravasation: No Pseudoaneurysm: Posterior outpouching which is thrombosed abutting the anterior L3 vertebral body questionable for pseudoaneurysm component. This measures 2.4 x 4.5 x 4 cm in AP longitudinal and transverse dimension. This abuts the retroaortic left renal vein. Hematoma: None. Celiac axis: Normal. No stenosis, aneurysm, dissection, or occlusion. Superior mesenteric artery: Normal. No stenosis, aneurysm, dissection, or occlusion. Right renal artery: Accessory right renal artery supplying the upper pole. No stenosis, aneurysm, dissection, or occlusion. Left renal artery: Normal. No stenosis, aneurysm, dissection, or occlusion. Inferior mesenteric artery: Normal. No stenosis, aneurysm, dissection, or occlusion. Measurements are as follows (largest diameter short-axis to the centerline): Aortic hiatus: 2.7 x 2.6 cm Suprarenal aorta: 2.7 x 2.5 cm Infrarenal aorta: 5.6 x 4.7 Aortic measurements are stable in comparison with prior measurements from abdominal ultrasound April 2024. Right common iliac artery: 1.7 x 1.5 cm Left common iliac artery: 1.8 x 1.5 cm. VEINS: No venous thrombosis. Aneurysm causes mass-effect on the retroaortic left renal vein. NONVASCULAR: Lower Chest: Normal. Clear lung bases, normal heart size, and no effusions. Liver: Normal. No focal lesions. Biliary: Normal. No biliary ductal dilatation. Spleen: Normal. No splenomegaly. Pancreas: Normal. No ductal dilatation, peripancreatic fluid, or stranding. Adrenal Glands: 1.6 x 1.9 cm right adrenal nodule. Hounsfield units precontrast measures 22 which is indeterminate. The left adrenal gland is normal. Kidneys/Ureters: Small subcentimeter cyst in the lower pole of the left kidney. No stones or hydronephrosis. Bowel: Normal. No distention or wall thickening. Peritoneum/Retroperitoneum: Normal. No masses, pneumoperitoneum, or fluid. Lymph Nodes: Normal, no lymphadenopathy. Bones/Soft Tissues: Small umbilical hernia containing fat. Degenerative changes of the spine.. Procedure Note Cynthia Delatorre MD - 05/18/2024 CT ANGIO ABDOMEN WITH AND WITHOUT CONTRAST Referring clinician's provided indication for this examination in Epic:Outside Radiology Order; abnormal aortic aneurysm TECHNIQUE: Multidetector-row CTA of the abdomen was performed before andafter administration of intravenous contrast using tailored dosemodulation techniques. Images were reconstructed in the axial, coronal,and sagittal planes, including angiographic image post-processing. COMPARISON: Abdominal ultrasound April 28, 2024 FINDINGS: VASCULAR: Aorta: There is a partially thrombosed infrarenal abdominal aorticaneurysm. This measures 5.6 x 4.7 cm in transverse and AP dimension. Thismeasures 5.5 cm in length. This is 2.6 cm below the lowest accessory rightrenal artery. This causes mass- effect on a retroaortic left renal vein. Contrast extravasation: No Pseudoaneurysm: Posterior outpouching which is thrombosed abutting theanterior L3 vertebral body questionable for pseudoaneurysm component. Thismeasures 2.4 x 4.5 x 4 cm in AP longitudinal and transverse dimension.This abuts the retroaortic left renal vein. Hematoma: None. Celiac axis: Normal. No stenosis, aneurysm, dissection, or occlusion. Superior mesenteric artery: Normal. No stenosis, aneurysm, dissection, orocclusion. Right renal artery: Accessory right renal artery supplying the upper pole.No stenosis, aneurysm, dissection, or occlusion. Left renal artery: Normal. No stenosis, aneurysm, dissection, orocclusion. Inferior mesenteric artery: Normal. No stenosis, aneurysm, dissection, orocclusion. Measurements are as follows (largest diameter short-axis to thecenterline): Aortic hiatus: 2.7 x 2.6 cm Suprarenal aorta: 2.7 x 2.5 cm Infrarenal aorta: 5.6 x 4.7 Aortic measurements are stable in comparison with prior measurements fromabdominal ultrasound April 2024. Right common iliac artery: 1.7 x 1.5 cm Left common iliac artery: 1.8 x 1.5 cm. VEINS: No venous thrombosis. Aneurysm causes mass-effect on the retroaortic leftrenal vein. NONVASCULAR: Lower Chest: Normal. Clear lung bases, normal heart size, and noeffusions. Liver: Normal. No focal lesions. Biliary: Normal. No biliary ductal dilatation. Spleen: Normal. No splenomegaly. Pancreas: Normal. No ductal dilatation, peripancreatic fluid, orstranding. Adrenal Glands: 1.6 x 1.9 cm right adrenal nodule. Hounsfield unitsprecontrast measures 22 which is indeterminate. The left adrenal gland isnormal. Kidneys/Ureters: Small subcentimeter cyst in the lower pole of the leftkidney. No stones or hydronephrosis. Bowel: Normal. No distention or wall thickening. Peritoneum/Retroperitoneum: Normal. No masses, pneumoperitoneum, orfluid. Lymph Nodes: Normal, no lymphadenopathy. Bones/Soft Tissues: Small umbilical hernia containing fat. Degenerativechanges of the spine.. IMPRESSION: Partially thrombosed infrarenal abdominal aortic aneurysm measuring 5.7 x4.7 cm. Thrombosed posterior outpouching questionable for pseudoaneurysm.This abuts the anterior L3 vertebral body and retroaortic left renal veinand causes mass-effect on the retroaortic left renal vein.. Accessoryright renal artery supplying the upper pole of the right kidney. 1.6 x 1.9 cm indeterminate right adrenal nodule. us Karli Yuan MD IMG CT ABD/PELVIS Final Res ult documented in this encounter Visit Diagnoses Diagnosis Abdominal aortic aneurysm (AAA) without rupture, unspecified part- Primary Abdominal aortic aneurysm (AAA) without rupture, unspecified part documented in this encounter Care Teams Geodetic Advisor Relationship Specialty Start Date End Date Doris Reid MD [email or web address] PCP - General 07/29/17 documented as of this encounter Additional Source Comments The information contained in this document represents components of the legal health record. It is not the complete legal health record.[facility]
--- OUTSIDE RECORDS SUMMARY | 2025-08-22 17:22 | XMS_ITS | Encounter Summary ---
Author Organization [facility] Address [address] [facility] [address] [place] [address] Phone Care Team Providers Care Senior Manager Mmcoe Name Role Phone Doris Reid MD Primary Care Prov ider Encounter Details Date Type Department Care Team (Late st Contact Info) Description 04/29/2024 Procedure Pass [facility], Ct Scan - [address] [id number] Social History Tobacco Use Types Packs/Day Years [...] on filedocumented in this encounter Care Teams Senior Manager Mmcoe Relationship Specialty Start Date End Date Doris Reid MD PCP - General 11/7/17 documented as of this encounter Additional Source Comments The information contained in this document represents components of the legal health record. It is not the complete legal health record.[facility]
--- OUTSIDE RECORDS SUMMARY | 2025-08-22 17:22 | XMS_ITS | Clinical Summary ---
Author Organization [facility] Address [address] [facility] [address] [place] [address] Phone Care Team Providers Care Roller Operator Name Role Phone Doris Reid MD Primary Care Prov ider Allergies No known active allergies Medications aspirin 81 MG EC tablet Take 81 mg by mouth daily. 11/15/2022 Active atorvastatin (LIPITOR) 20 MG tablet Take 20 mg by mouth daily. 11/15/2022 Active glucosamine-cho ndroitin 500-400 mg Cap Take 1 capsule by mouth 3 (three) times a day. Active Active Problems Problem Noted Date Diagnosed Date Primary osteoarthritis of both knees 10/28/2019 Right shoulder pain 08/30/2019 Carpal tunnel syndrome of right wrist Social History Tobacco Use Types Packs/Day Years Used Date Smoking Tobacco: Former Cigarettes Q uit: 09/2016 Smokeless Tobacco: Never Tobacco Cessation:Counseling Given: Not Answered Alcohol Use Standard Drinks/Week Comments Yes 2 [...] on file Sexual Orientation Not on file Last Filed Vital Signs Vital Sign Reading Time Taken Comments Blood Pressure 151/83 01/08/2023 12:51 PM EDT Pulse 63 01/08/2023 12:51 PM EDT Temperature 36 C (96.8 F) 01/08/2023 12:41 PM EDT Respiratory Rate 16 01/08/2023 12:51 PM EDT Oxygen Saturation 97% 01/08/2023 12:51 PM EDT Inhaled Oxygen Concentration - - Weight 108.9 kg (240 lb) 01/07/2023 8:36 AM EDT Height 174.5 cm (5' 8.7 ) 01/07/2023 8:36 AM EDT Body Mass Index 35.75 01/07/2023 8:36 AM EDT Plan of Treatment Health Maintenance Due Date Last Done Comments DEPRESSION SCREENING 1966 SMOKING Hx and SMOKELESS TOBACCO SCREENING 12/27/1967 HEPATITIS C SCREENING 1972 COLOGUARD 12/27/1999 FIT TEST 12/27/1999 FOBT 12/27/1999 SIGMOIDOSCOPY 12/27/1999 VIRTUAL COLONOSCOPY 12/27/1999 ZOSTER VACCINES (1 of 2) 2004 PNEUMOCOCCAL VACCINES (50+ years) (2 of 2 - PCV) 07/20/2015 07/20/2014 Adult Td,Tdap Booster 04/24/2022 04/24/2012 LIPID PANEL 02/17/2024 02/16/2019 INFLUENZA VACCINE (#1) 2025 COVID-19 VACCINE (3 - 2024-2 6 season) 2025 09/11/2021, 12/25/2020 RSV VACCINE (1 - 1-dose 75+ series) 2029 COLONOSCOPY 01/08/2033 01/08/2023 COLORECTAL CANCER SCREENING 01/08/2033 ABDOMINAL AORTIC ANEURYSM (AAA) SCREENING Completed 05/10/2024 HEPATITIS A VACCINES Aged Out No long er eligible based on patient's age to complete this topic HIB VACCINES Aged Out No longer eligi ble based on patient's age to complete this topic MENINGOCOCCAL VACCINES (ACWY) Aged Out No longer eligible based on patient's age to complete this topic MENINGOCOCCAL VACCINES (B) Aged Out N o longer eligible based on patient's age to complete this topic Medical Devices Not on file Procedures Procedure Name Priority Date/Time Associated Diagnosis Comments CT ANGIO ABDOMEN WITH AND WITHOUT CONTRAST Routine 05/10/2024 5:47 PM EDT Abdominal aortic aneurysm (AAA) without rupture, unspecified part ENDOSCOPY, COLON 01/08/2023 12:0 8 PM EDT from Last 3 Months or Most Recently Relevant to Health Maintenance Results * CT ANGIO ABDOMEN WITH AND [...] MD IMG CT ABD/PELVIS Final Res ult * ENDOSCOPY, COLON (01/08/2023 12:08 PM EDT) Narrative Transcriptions Nisha Pedersen MD - 01/08/2023 12:08 PM EDT [facility] Patient Name: Moustapha Ponce Attending MD:: NISHA PEDERSEN MD, Procedure Date: 01/08/2023 12:08 PM Date of : 1955 Age: 67 Admit Type: Outpatient Gender: Male Room: [place] [address] Referring MD: Doris Manzano MD Exam Type: Colonoscopy Indications: Screening for colorectal malignant neoplasm, Last colonoscopy: February 2012 Medications: Monitored Anesthesia Care Procedure: Informed consent was obtained from the patientafter discussion of the indications, limitations, alternatives, benefits, and risks of the procedure. Risks specifically discussed include but are not limited to medication reactions, missed lesions, bleeding, perforation, or the need for emergent surgery. Throughout the procedure, the patient's blood pressure, pulse, end-tidal CO2, and oxygensaturations were monitored continuously. The Olympus adult variable colonoscope [id number] #1 was introduced through the anus and advanced to the cecum, identified by the appendiceal orifice, ileocecal valve and palpation. The colonoscopy was technically difficult and complex due to aredundant colon, significant looping and the patient's body habitus. Successful completion of the procedure was aided by applying abdominal pressure. The patient tolerated the procedure fairly well. The quality of the bowel preparation was good. The ileocecalvalve, appendiceal orifice, and rectum werephotographed. Complications: No immediate complications. Estimated blood loss:None. Findings: The perianal and digital rectal examinations were normal. Pertinent negatives include no palpablerectal lesions. Retroflexion in the right colon was performed. Non-bleeding internal hemorrhoids were found during retroflexion. The hemorrhoids were moderate. The exam was otherwise without abnormality ondirect and retroflexion views. Impression: - Non-bleeding internal hemorrhoids. - The examination was otherwise normal on directand retroflexion views. - No specimens collected. Recommendation: - Repeat colonoscopy in 10 years for screening purposes. - Patient has a contact number available for emergencies. The signs and symptoms of potential delayed complications were discussed with thepatient. Return to normal activities tomorrow. Written discharge instructions were provided to thepatient. - Continue present medications. NISHA PEDERSEN MD 01/08/2023 12:39:49 PM This report has been signed electronically. Number of Addenda: 0 Note Initiated On: 01/08/2023 12:08 PM Procedure Code(s): --- Professional --- G0121, Colorectal cancer screening; colonoscopy on individual not meeting criteria for high risk --- Technical --- G0121, Colorectal cancer screening; colonoscopy on individual not meeting criteria for high risk Diagnosis Code(s): --- Professional --- Z12.11, Encounter for screening for malignantneoplasm of colon K64.8, Other hemorrhoids --- Technical --- Z12.11, Encounter for screening for malignantneoplasm of colon K64.8, Other hemorrhoids CPT copyright 2021 [employer]. All rights reserved. The codes documented in this report are preliminary and upon requisition approver reviewmay be revised to meet current compliance requirements. Procedure Date: 01/08/2023 12:08:01 PM [address] [place] [address] Doris Manzano MD GI PROCEDURE ORDER OZZY Final Result from Last 3 Months or Most Recently Relevant to Health Maintenance Insurance MEDICARE PART A & B [facility] MEDICARE REPLACEMENT [facility] MEDICARE REPLACEMENT MEDICARE PART A & B [address] [place], [place] [address]HEALTH MEDICARE PART A & B [facility] MEDIC[facility] PART A & B [facility] MEDICARE REPLACEMENT MEDICARE PART A & B [place] B [facility] MEDICARE REPLACEMENT MEDICARE PART A & B [facility] MEDICARE REPLACEMENT MEDICARE PART A & B [facility] MEDIC[facility] REPLACEMENT Advance Directives For more information, please contact: [phone] (9AM - 5PM [facility], Friday-Friday) * Full Code (Presumed) (Latest Code Status on File) Date Activated Date Inactivated Comments 09/03/2017 10:25 AM 09/03/2017 4:07 PM Care Teams Roller Operator Relationship Specialty Start Date End Date Doris Reid MD PCP - General 07/29/17 Additional Source Comments The information contained in this document represents components of the legal health record. It is not the complete legal health record.[facility]
--- OUTSIDE RECORDS SUMMARY | 2025-08-22 17:23 | XMS_ITS | Encounter Summary ---
Author Organization [facility] Address [address] [place] [address] Phone Care Team Providers Care Rnp Name Role Phone Doris Reid MD Primary Care Prov ider Encounter Details Date Type Department Care Team (Late st Contact Info) Description 01/08/2023 Procedure Pass [facility] Endoscopy Admitting Dept Virtual Department [address] [place] [address] Social History Tobacco Use Types Packs/Day Years Used Date Smoking Tobacco: Former Cigarettes Q uit: 09/2016 Smokeless Tobacco: Never Alcohol Use Standard Drinks/Week Comments Yes 2 (1 standard drink = 0.6 oz pur e alcohol) Sex and Gender Information Value Date Recorded Sex Assigned at Not on file Legal Sex Male 9:56 PM EDT Gender Identity Not on file Sexual Orientation Not on file documented as of this encounter Plan of Treatment Not on file documented as of this encounter Visit Diagnoses Not on filedocumented in this encounter Care Teams Rnp Relationship Specialty Start Date End Date Doris Reid MD PCP - General 07/29/17 documented as of this encounter Additional Source Comments The information contained in this document represents components of the legal health record. It is not the complete legal health record.[facility]
--- OUTSIDE RECORDS SUMMARY | 2025-08-22 17:23 | XMS_ITS | Encounter Summary ---
Author Organization [facility] Address [address] [facility] [address] [place] [address] Phone Care Team Providers Care Synchronizer Name Role Phone Doris Reid MD Primary Care Prov ider Doris Reid MD Unavailable + Encounter Details Date Type Department Care Team (Late st Contact Info) Description 09/03/2017 Procedure Pass [place] Admitting Dept - Virtual Department [address] [place] [id number] Social History Tobacco Use Types Packs/Day Years Used Date Smoking Tobacco: Former Cigarettes Q uit: 09/2016 Smokeless Tobacco: Never Alcohol Use Standard Drinks/Week Comments Yes 0 (1 standard drink = 0.6 oz pur e alcohol) occ Sex and Gender Information Value Date Recorded Sex Assigned at Not on file Legal Sex Male 9:56 PM EDT Gender Identity Not on file Sexual Orientation Not on file documented as of this encounter Plan of Treatment Not on file documented as of this encounter Visit Diagnoses Not on filedocumented in this encounter Care Teams Synchronizer Relationship Specialty Start Date End Date Doris Reid MD PCP - General 07/29/17 Doris Reid MD [address] [place] [phone] Insurance Assigned Provider 3/31/18 8/6/20 documented as of this encounter Additional Source Comments The information contained in this document represents components of the legal health record. It is not the complete legal health record.[facility]
--- OUTSIDE RECORDS SUMMARY | 2025-08-22 17:23 | XMS_ITS | Encounter Summary ---
Author Organization [facility] Address [address] [facility] [address] [place] [phone] Phone Care Team Providers Care Truck Leasing Manager Name Role Phone Doris Reid MD Primary Care Prov ider Doris Reid MD Unavailable + Reason for Referral * MRI/CAT Scan - Closed Specialty Diagnoses / Procedures Referred By Contac t Referred To Contact Radiology Diagnoses Right shoulder pain, unspecified chronicity Procedures MRI Shoulder Arthrogram (Right) Alo Campbell MD Phone: tel: fax: mailto: Referral ID Status Reason Start Date Expiration Date Visits Re quested Visits Authorized [id number] Closed 12/03/2018 12/04/2019 1 1 * - Closed Specialty Diagnoses / Procedures Referred By Contac t Referred To Contact Radiology Diagnoses Right shoulder pain, unspecified chronicity Procedures FL Shoulder Arthrogram (Right) Alo Campbell MD Phone: tel: fax: mailto: Referral ID Status Reason Start Date Expiration Date Visits Re quested Visits Authorized [id number] Closed 12/03/2018 12/03/2019 1 1 Encounter Details Date Type Department Care Team (Latest Contact Info) Description 12/03/2018 Transcribe Orders [facility] Department [address] [place] [phone] Alo Campbell MD [address] [place] [phone] Right shoulder pain, unspecified chronicity (Primary Dx) Social History Tobacco Use Types [...] documented as of this encounter Results * MRI Shoulder Arthrogram (Right) (12/24/2018 10:44 AM EDT) Anatomical Region Laterality Modality Shoulder Right Magnetic Resonan ce 12/24/2018 10:4 2 AM EDT Impressions 12/24/2018 10:56 AM EDT *Image quality degraded by motion artifact.* 1. Full-thickness retracted supraspinatus tendon tear. 2. Severe AC joint osteoarthritis with osteophytes likely contributing to impingement. 3. Subcoracoid bursitis. POS - [id number] Narrative 12/24/2018 10:56 AM EDT COMPARISON: Radiographs 12/24/2018. TECHNIQUE: Exam performed on a 1.5 [place] high-field MRI scanner. Dilute gadolinium solution was injected before the MRI - please see separate report. Axial T1, T1 with fat suppression and proton density with fat suppression, oblique coronal T1 with fat suppression and T2 with fat suppression, oblique sagittal T1 with fat suppression and proton density with fat suppression sequences were obtained. MRI RIGHT SHOULDER ARTHROGRAM FINDINGS: *Image quality degraded by motion artifact.* Acromion: No os acromiale. Type I acromion. No anterior or lateral downsloping. Rotator cuff muscle/tendon: There is a full-thickness supraspinatus tendon tear with gadolinium extending into the subacromial subdeltoid bursa. There is a large supraspinatus tendon gap tear measuring at least 2.1 cm with the tendon retracted to 12:00 location of the humeral head. Small residual tendon insertional fibers are abnormal with intermediate signal intensity indicative of tendinopathy. Subscapularis tendon is intact. No rotator cuff muscle edema. Mild fatty infiltration of the rotator cuff muscles but no significant atrophy. Labrum/biceps tendon: No labral or biceps tendon tear. Bone marrow/joint: Severe acromioclavicular joint space narrowing with small subchondral cysts, mild reactive marrow edema and downward projecting osteophytes likely contributing to impingement. Glenohumeral joint space is maintained. Small degenerative cysts in the humeral head. No bone marrow lesions. There is a septated subcoracoid bursal fluid collection indicative of bursitis. No suprascapular or spinoglenoid notch mass. Procedure Note Frederick Turcios MD - 12/24/2018 COMPARISON: Radiographs 12/24/2018. TECHNIQUE: Exam performed on a 1.5 [place] high-field MRI scanner. Dilutegadolinium solution was injected before the MRI - please see separatereport. Axial T1, T1 with fat suppression and proton density with fatsuppression, oblique coronal T1 with fat suppression and T2 with fatsuppression, oblique sagittal T1 with fat suppression and proton densitywith fat suppression sequences were obtained. MRI RIGHT SHOULDER ARTHROGRAM FINDINGS: *Image quality degraded by motion artifact.* Acromion: No os acromiale. Type I acromion. No anterior or lateraldownsloping. Rotator cuff muscle/tendon: There is a full-thickness supraspinatustendon tear with gadolinium extending into the subacromial subdeltoidbursa. There is a large supraspinatus tendon gap tear measuring at least2.1 cm with the tendon retracted to 12:00 location of the humeral head.Small residual tendon insertional fibers are abnormal with intermediatesignal intensity indicative of tendinopathy. Subscapularis tendon isintact. No rotator cuff muscle edema. Mild fatty infiltration of therotator cuff muscles but no significant atrophy. Labrum/biceps tendon: No labral or biceps tendon tear. Bone marrow/joint: Severe acromioclavicular joint space narrowing withsmall subchondral cysts, mild reactive marrow edema and downwardprojecting osteophytes likely contributing to impingement. Glenohumeraljoint space is maintained. Small degenerative cysts in the humeral head.No bone marrow lesions. There is a septated subcoracoid bursal fluidcollection indicative of bursitis. No suprascapular or spinoglenoid notchmass. IMPRESSION: *Image quality degraded by motion artifact.* 1. Full-thickness retracted supraspinatus tendon tear. 2. Severe AC joint osteoarthritis with osteophytes likely contributing toimpingement. 3. Subcoracoid bursitis. POS - [id number] us Alo Campbell MD IMG MR EXTREMITY Final Resul t * FL Shoulder Arthrogram (Right) (12/24/2018 9:52 AM EDT) Anatomical Region Laterality Modality Shoulder Right Radiographic Andreia ging 12/24/2018 10:0 5 AM EDT Impressions 12/24/2018 10:10 AM EDT Apparently successful but probably mixed intra-articular contrast administration. MR arthrography is pending, to be reported separately. FLUOROSCOPY TIME: 1 min. 19 sec; 2 IMAGES/FRAMES POS - [id number] Narrative 12/24/2018 10:10 AM EDT COMPARISON: None FINDINGS: An AP bottom brusher view reveals subacromial spurring without acute traumatic or destructive bony abnormality apparent. Once the appropriate side of intervention was confirmed by the patient and radiologist the overlying skin and subcutaneous tissues were infiltrated with a lidocaine solution. Utilizing sterile technique a spinal needle was then percutaneously inserted via an anterior approach. Initial radiographic contrast injection appeared to be within the biceps and therefore the needle was slightly repositioned and additional contrast administered, outlining the humeral head and axillary recess consistent with an intra- articular location. Approximately 12 cc of a dilute gadolinium mixture was then instilled. The patient tolerated the procedure well without immediate complications encountered, and was subsequently sent to the MR suite for further imaging. Procedure Note Nisha Ng MD - 12/24/2018 COMPARISON: None FINDINGS: An AP bottom brusher view reveals subacromial spurring without acute traumatic ordestructive bony abnormality apparent. Once the appropriate side ofintervention was confirmed by the patient and radiologist the overlyingskin and subcutaneous tissues were infiltrated with a lidocaine solution.Utilizing sterile technique a spinal needle was then percutaneouslyinserted via an anterior approach. Initial radiographic contrastinjection appeared to be within the biceps and therefore the needle wasslightly repositioned and additional contrast administered, outlining thehumeral head and axillary recess consistent with an intra-articularlocation. Approximately 12 cc of a dilute gadolinium mixture was theninstilled. The patient tolerated the procedure well without immediatecomplications encountered, and was subsequently sent to the MR suite forfurther imaging. IMPRESSION: Apparently successful but probably mixed intra-articular contrastadministration. MR arthrography is pending, to be reported separately. FLUOROSCOPY TIME: 1 min. 19 sec; 2 IMAGES/FRAMES POS - [id number] Alo Campbell MD IMG IR MSK Final Result documented in this encounter Visit Diagnoses Diagnosis Right shoulder pain, unspecified chronicity- Primary Right shoulder pain, unspecified chronicity Right shoulder pain, unspecified chronicity documented in this encounter Care Teams Truck Leasing Manager Relationship Specialty Start Date End Date Doris Reid MD PCP - General 07/29/17 Doris Reid MD [address] [place] [id number] Insurance Assigned Provider 12/20/17 04/27/20 documented as of this encounter Additional Source Comments The information contained in this document represents components of the legal health record. It is not the complete legal health record.[facility]
--- OUTSIDE RECORDS SUMMARY | 2025-08-22 17:23 | XMS_ITS | Encounter Summary ---
Author Organization [facility] Address [address] [facility] [address] [place] [phone] Phone Care Team Providers Care Buffing Wheel Raker Name Role Phone Doris Reid MD Primary Care Prov ider Doris Reid MD Unavailable + Encounter Details Date Type Department Care Team (Late st Contact Info) Description 12/03/2018 Procedure Pass [facility], [address] [phone] Social History Tobacco Use Types Packs/Day Years [...] on filedocumented in this encounter Care Teams Buffing Wheel Raker Relationship Specialty Start Date End Date Doris Reid MD PCP - General 07/29/17 Doris Reid MD [address] [place] [id number] Insurance Assigned Provider 12/20/17 04/27/20 documented as of this encounter Additional Source Comments The information contained in this document represents components of the legal health record. It is not the complete legal health record.[facility]
== END 2025-08-22 14:22 | disposition home or self-care (01) ==
LOC: HO.HCS 13:55
PROVIDERS: PCP Family Medicine; Visit Provider Internal Medicine
DX: E66.01 Morbid (severe) obesity due to excess calories (principal); I10 Essential (primary) hypertension; I71.43 Infrarenal abdominal aortic aneurysm, without rupture
CPT/HCPCS: 93010; 99214; G2211

== ENCOUNTER → 2025-08-22 13:54 | Outpatient (BNVA) | payer MEDICARE, SELFPAY | PROVIDERS: PCP Family Medicine; Visit Provider Internal Medicine | DX: I71.43 Infrarenal abdominal aortic aneurysm, without rupture (principal); E66.01 Morbid (severe) obesity due to excess calories; I10 Essential (primary) hypertension; Z68.38 Body mass index [BMI] 38.0-38.9, adult | CPT/HCPCS: 93005; 99212 ==